=== PATIENT | male | born 1935 | race Caucasian/White ===

== ENCOUNTER → 2017-07-27 | Outpatient (CLI) | payer OTHER ==
[~2017-07-27] MED LIST: ASPI81CH; ATEN25; ATEN25 PO; CEPH500 PO; CIPR500 PO; Celebrex200 MG PO; DAILY MULTIPLE1 EACH; DIPH50 PO; HYDCOR1TC TOP; Norco 5-325 Ta1 EACH PO; OXYACE5T PO; PRED20 PO; PROM25 PO; SULTRIDS PO
== END | disposition home or self-care (01) ==
LOC: LAB 14:06
PROVIDERS: Hospitalist
DX: Z12.5 Encounter for screening for malignant neoplasm of prostate (principal)
CPT/HCPCS: G0103

== ENCOUNTER 2017-11-27 16:14 | Emergency (ER) | payer OTHER ==
[~2017-11-27] VITALS: Ht 188 cm; Wt 83.0 kg
[~2017-11-27 16:14] MED LIST changes: -ATEN25; -Celebrex200 MG PO; -Norco 5-325 Ta1 EACH PO
[2017-11-27] MEDS ORDERED: Celebrex200 MG PO (17:17)
[2017-11-27] MEDS ORDERED: Norco 5-325 Ta1 EACH PO (17:20)
== END 2017-11-27 17:41 | disposition home or self-care (01) ==
LOC: ER 16:14
DX: S20.211A Contusion of right front wall of thorax, initial encounter (principal); Z88.5 Allergy status to narcotic agent; Z79.82 Long term (current) use of aspirin; Z79.899 Other long term (current) drug therapy; W01.0XXA Fall on same level from slipping, tripping and stumbling without subsequent striking against object, initial encounter; Y93.01 Activity, walking, marching and hiking; Y92.89 Other specified places as the place of occurrence of the external cause
CPT/HCPCS: 71101; 96374; 99283; J1885

== ENCOUNTER → 2018-01-03 | Outpatient (CLI) | payer OTHER ==
[~2018-01-03] MED LIST changes: +Celebrex200 MG PO; +Norco 5-325 Ta1 EACH PO
== END | disposition home or self-care (01) ==
LOC: LAB SHORT 15:54 → LAB 15:54
DX: N39.0 Urinary tract infection, site not specified (principal); R31.0 Gross hematuria
CPT/HCPCS: 87086

== ENCOUNTER → 2019-02-15 | Outpatient (CLI) | payer OTHER ==
[~2019-02-15] MED LIST changes: +Aspir 8181 MG PO; +Cipro500 MG PO; +Crutch1 EACH MISC; +Mobic7.5 MG PO; +Percocet 5-3251 EACH PO; +Zofran4 MG PO
[2019-02-15 19:10] LABS: Anion Gap 4 mmol/L (6-16); Blood Urea Nitrogen 15 mg/dL (8-24); Bun/Creatinine Ratio 18.3 (12.0-20.0); CO2, Blood 30 mmol/L (21-32); Calcium, Blood 8.1 mg/dL (8.5-10.1); Chloride, Blood 105 mmol/L (98-108); Creatinine, Blood 0.82 mg/dL (0.60-1.20); Glomerular Filtration Rate >60 (60-); Glucose, Blood 114 mg/dL (70-99); Sodium, Blood 139 mmol/L (136-145)
== END | disposition home or self-care (01) ==
LOC: LAB SHORT 17:58 → LAB 17:58
PROVIDERS: Hospitalist
DX: N40.1 Benign prostatic hyperplasia with lower urinary tract symptoms (principal)
CPT/HCPCS: 80048; 84153; 87086

== ENCOUNTER 2019-04-03 09:55 | Emergency (ER) | payer OTHER ==
[~2019-04-03] VITALS: Ht 188 cm; Wt 79.4 kg
[~2019-04-03 09:55] MED LIST changes: -Aspir 8181 MG PO; -Cipro500 MG PO; -Crutch1 EACH MISC; -Mobic7.5 MG PO; -Percocet 5-3251 EACH PO; -Zofran4 MG PO
[2019-04-03] MEDS ORDERED: Aspir 8181 MG PO (10:18)
[2019-04-03] MEDS ORDERED: Zofran4 MG PO (10:44)
[2019-04-03] MEDS ORDERED: Percocet 5-3251 EACH PO (10:44)
[2019-04-03] MEDS ORDERED: Mobic7.5 MG PO (10:44)
[2019-04-03] MEDS ORDERED: Crutch1 EACH MISC (11:11)
[2019-04-28] MEDS ORDERED: FURO40 PO (03:44)
[2019-04-28] MEDS ORDERED: METO25ER PO (03:44)
== END 2019-04-03 11:48 | disposition home or self-care (01) ==
LOC: ER 09:55
DX: S86.911A Strain of unspecified muscle(s) and tendon(s) at lower leg level, right leg, initial encounter (principal); Z88.5 Allergy status to narcotic agent; Z79.899 Other long term (current) drug therapy; Z79.82 Long term (current) use of aspirin; X58.XXXA Exposure to other specified factors, initial encounter
CPT/HCPCS: 29505; 99283-25

== ENCOUNTER 2019-04-13 15:00 | Emergency (ER) | payer OTHER ==
[~2019-04-13] VITALS: Ht 188 cm; Wt 81.7 kg
[~2019-04-13 15:00] MED LIST changes: +Aspir 8181 MG PO; +Crutch1 EACH MISC; +Mobic7.5 MG PO; +Percocet 5-3251 EACH PO; +Zofran4 MG PO
[2019-04-13 16:59] LABS: Source, Urine Catheter
[2019-04-13 17:10] LABS: Appearance, Urine Cloudy (Clear); Bilirubin, Urine Neg (Neg); Blood, Urine 5+ (Neg); Color, Urine Red (P-Yellow); Glucose Qualitative, Urine Neg (Neg); Ketones, Urine 1+ (Neg); Leukocyte Esterase, Urine 1+ (Neg); Nitrite, Urine Neg (Neg); Protein, Urine 3+ (Neg); Specific Gravity, Urine 1.015 (1.003-1.022); Urobilinogen, Urine NORM (Normal); pH, Urine 6.5 (5.0-8.0)
[2019-04-13 17:12] LABS: Red Blood Cells, Urine TNTC /hpf (0-2)
[2019-04-13 17:13] LABS: Bacteria Mod /hpf; Squamous Epithelial Cells Not Seen /hpf (Few)
[2019-04-13 19:20] LABS: BASOPHILS ABSOLUTE AUTO 0.02 K/mm3 (0.00-0.23); BASOPHILS PERCENT AUTO 0 % (0-2); EOSINOPHILS ABSOLUTE AUTO 0.11 K/mm3 (0.00-0.68); EOSINOPHILS PERCENT AUTO 1 % (0-6); Hemoglobin 16.7 g/dL (13.5-17.5); IMMATURE GRAN ABSOLUTE AUTO 0.01 K/mm3 (0.00-0.10); IMMATURE GRAN PERCENT AUTO 0 % (0-1); LYMPHOCYTES ABSOLUTE AUTO 1.98 K/mm3 (0.84-5.20); LYMPHOCYTES PERCENT AUTO 24 % (21-46); MONOCYTES ABSOLUTE AUTO 0.47 K/mm3 (0.16-1.47); MONOCYTES PERCENT AUTO 6 % (4-13); Mean Corpuscular HGB 31.9 pg (26.0-34.0); Mean Corpuscular HGB Conc 32.7 g/dL (31.5-36.5); Mean Corpuscular Volume 97 fL (80-100); Mean Platelet Volume 10.9 fL (9.1-12.4); NEUTROPHILS ABSOLUTE AUTO 5.67 K/mm3 (1.96-9.15); NEUTROPHILS PERCENT AUTO 69 % (41-73); Platelet Count 146 K/mm3 (150-400); RDW Coefficient Variation 12.8 % (11.7-14.2); RDW Standard Deviation 45.8 fL (35.1-46.3); Red Blood Cell Count 5.24 M/mm3 (4.30-5.90); White Blood Cell Count 8.26 K/mm3 (4.00-11.30)
[2019-04-13 19:42] LABS: Alanine Aminotransfer (ALT/SGP 16 U/L (12-78); Albumin, Blood 3.8 g/dL (3.4-5.0); Albumin/Globulin Ratio 1.1 (0.8-1.8); Alk Phos 63 U/L (50-136); Anion Gap 3 mmol/L (6-16); Aspartate Aminotrans (AST/SGOT 11 U/L (12-37); Bilirubin, Total 0.8 mg/dL (0.1-1.0); Blood Urea Nitrogen 15 mg/dL (8-24); Bun/Creatinine Ratio 19.9 (12.0-20.0); CO2, Blood 30 mmol/L (21-32); Calcium, Blood 8.9 mg/dL (8.5-10.1); Chloride, Blood 106 mmol/L (98-108); Creatinine, Blood 0.75 mg/dL (0.60-1.20); Globulin, Blood 3.5 g/dL (2.2-4.0); Glomerular Filtration Rate >60 (60-); Glucose, Blood 95 mg/dL (70-99); Potassium, Blood 3.8 mmol/L (3.5-5.5); Sodium, Blood 139 mmol/L (136-145); Total Protein, Blood 7.3 g/dL (6.4-8.2)
[2019-04-28] MEDS ORDERED: FURO40 PO (03:44)
[2019-04-28] MEDS ORDERED: METO25ER PO (03:44)
== END 2019-04-13 20:05 | disposition home or self-care (01) ==
LOC: ER 15:00
PROVIDERS: Emergency Medicine; Physician Assistant
DX: R33.9 Retention of urine, unspecified (principal); Z88.5 Allergy status to narcotic agent; Z79.899 Other long term (current) drug therapy; Z79.82 Long term (current) use of aspirin
CPT/HCPCS: 36415; 51702; 51798; 74176; 80053; 81001; 85025; 87086; 99284-25

== ENCOUNTER 2019-04-15 14:23 | Emergency (ER) | payer OTHER ==
[~2019-04-15] VITALS: Ht 188 cm; Wt 81.7 kg
[2019-04-28] MEDS ORDERED: FURO40 PO (03:44)
[2019-04-28] MEDS ORDERED: METO25ER PO (03:44)
== END 2019-04-15 18:01 | disposition short-term general hospital (02) ==
LOC: ER 14:23
DX: N47.2 Paraphimosis (principal); Z88.5 Allergy status to narcotic agent; Z79.899 Other long term (current) drug therapy; Z79.82 Long term (current) use of aspirin; Z79.891 Long term (current) use of opiate analgesic
CPT/HCPCS: 54450; 96374-59; 96375-59; 99284-25; J1170; J2405

== ENCOUNTER 2019-04-19 08:57 | Emergency (ER) | payer OTHER ==
[~2019-04-19] VITALS: Ht 188 cm; Wt 81.7 kg
[2019-04-19 09:40] LABS: Source, Urine Clean Catch
[2019-04-19 10:01] LABS: Appearance, Urine Hazy (Clear); Bilirubin, Urine Neg (Neg); Blood, Urine 5+ (Neg); Color, Urine Yellow (P-Yellow); Glucose Qualitative, Urine Neg (Neg); Ketones, Urine Neg (Neg); Leukocyte Esterase, Urine 3+ (Neg); Nitrite, Urine Pos (Neg); Protein, Urine 3+ (Neg); Specific Gravity, Urine 1.005 (1.003-1.022); Urobilinogen, Urine NORM (Normal)
[2019-04-19 10:02] LABS: Bacteria Many /hpf; Red Blood Cells, Urine 50-100 /hpf (0-2); Squamous Epithelial Cells Not Seen /hpf (Few); White Blood Cells, Urine 50-100 /hpf (0-5)
[2019-04-19] MEDS ORDERED: Cipro500 MG PO (10:26)
[2019-04-28] MEDS ORDERED: METO25ER PO (03:44)
[2019-04-28] MEDS ORDERED: FURO40 PO (03:44)
== END 2019-04-19 11:26 | disposition home or self-care (01) ==
LOC: ER 08:57
PROVIDERS: Physician Assistant
DX: N39.0 Urinary tract infection, site not specified (principal); Z88.5 Allergy status to narcotic agent; Z79.899 Other long term (current) drug therapy; Z79.82 Long term (current) use of aspirin
CPT/HCPCS: 51798; 81001; 87077; 87086; 87186; 99283-25

== ENCOUNTER → 2019-04-27 | Outpatient (CLI) | payer OTHER ==
[~2019-04-27] MED LIST changes: +Cipro500 MG PO; +FURO40 PO; +METO25ER PO
== END | disposition home or self-care (01) ==
LOC: LAB 13:30 → LAB SHORT 13:30
DX: N39.0 Urinary tract infection, site not specified (principal)
CPT/HCPCS: 87077; 87086; 87186

== ENCOUNTER 2019-06-07 18:51 | Observation (INO) | payer OTHER ==
[~2019-06-07] VITALS: Ht 188 cm; Wt 79.9 kg
[~2019-06-07 18:51] MED LIST changes: -METO25ER PO; +METO50ER PO
[2019-06-07 19:46] LABS: Source, Urine Clean Catch
[2019-06-07 19:52] LABS: BASOPHILS ABSOLUTE AUTO 0.02 K/mm3 (0.00-0.23); BASOPHILS PERCENT AUTO 0 % (0-2); EOSINOPHILS ABSOLUTE AUTO 0.02 K/mm3 (0.00-0.68); EOSINOPHILS PERCENT AUTO 0 % (0-6); Hemoglobin 15.7 g/dL (13.5-17.5); IMMATURE GRAN ABSOLUTE AUTO 0.03 K/mm3 (0.00-0.10); IMMATURE GRAN PERCENT AUTO 0 % (0-1); LYMPHOCYTES ABSOLUTE AUTO 1.34 K/mm3 (0.84-5.20); LYMPHOCYTES PERCENT AUTO 16 % (21-46); MONOCYTES PERCENT AUTO 4 % (4-13); Mean Corpuscular HGB 31.7 pg (26.0-34.0); Mean Corpuscular HGB Conc 33.4 g/dL (31.5-36.5); Mean Corpuscular Volume 95 fL (80-100); Mean Platelet Volume 10.4 fL (9.1-12.4); NEUTROPHILS ABSOLUTE AUTO 6.96 K/mm3 (1.96-9.15); NEUTROPHILS PERCENT AUTO 80 % (41-73); Platelet Count 130 K/mm3 (150-400); RDW Coefficient Variation 13.4 % (11.7-14.2); RDW Standard Deviation 47.1 fL (35.1-46.3); Red Blood Cell Count 4.96 M/mm3 (4.30-5.90); White Blood Cell Count 8.67 K/mm3 (4.00-11.30)
[2019-06-07 19:55] LABS: Bilirubin, Urine Neg (Neg); Blood, Urine 3+ (Neg); Glucose Qualitative, Urine Neg (Neg); Ketones, Urine 1+ (Neg); Leukocyte Esterase, Urine 2+ (Neg); Nitrite, Urine Pos (Neg); Protein, Urine 2+ (Neg); Specific Gravity, Urine 1.015 (1.003-1.022); Urobilinogen, Urine NORM (Normal)
[2019-06-07 20:01] LABS: Appearance, Urine Hazy (Clear); Color, Urine Yellow (P-Yellow)
[2019-06-07 20:04] LABS: Bacteria Mod /hpf; Squamous Epithelial Cells Few /hpf (Few)
[2019-06-07 20:15] LABS: Alanine Aminotransfer (ALT/SGP 20 U/L (12-78); Albumin, Blood 3.5 g/dL (3.4-5.0); Albumin/Globulin Ratio 0.9 (0.8-1.8); Alk Phos 55 U/L (50-136); Anion Gap 5 mmol/L (6-16); Aspartate Aminotrans (AST/SGOT 12 U/L (12-37); Bilirubin, Total 1.1 mg/dL (0.1-1.0); Blood Urea Nitrogen 12 mg/dL (8-24); Bun/Creatinine Ratio 18.2 (12.0-20.0); CO2, Blood 27 mmol/L (21-32); Calcium, Blood 8.8 mg/dL (8.5-10.1); Chloride, Blood 103 mmol/L (98-108); Creatinine, Blood 0.66 mg/dL (0.60-1.20); Globulin, Blood 3.7 g/dL (2.2-4.0); Glomerular Filtration Rate >60 (60-); Glucose, Blood 168 mg/dL (70-99); Potassium, Blood 3.7 mmol/L (3.5-5.5); Sodium, Blood 135 mmol/L (136-145); Total Protein, Blood 7.2 g/dL (6.4-8.2)
[2019-06-07 21:54] LABS: International Normalized Ratio 1.07; Prothrombin Time Results 11.3 Sec (9.7-11.5)
--- NOTE | 2019-06-08 04:30 | NUR ---
SHIFT SUMMARY RECIVED REPORT FROM ADDIS BENTLEY, ED. ARRIVED TO THE MEDICAL FLOOR VIA STRETCHER @ 0057. ABLE TO TRANSFER WITH MINIMAL ASSISTANCE; HOWEVER, DID APPEAR DIFFICULT R/T WEAKNESS OVER THE PAST FEW DAYS. A/OX4, ABLE TO MAKE NEEDS KNOWN. COOPERATIVE WITH CARE. NO C/O PAIN/DISCOMFORT. IV PATENT AND RUNNING NS X1 BAG @ 100 ML/HR. ADMISSION PROCESS COMPLETE. VSS/AFEBRILE. APPEARS TO BE RESTING COMFORTABLY. NO ACUTE CHANGES NOTED. BED IN LOWEST POSITION. CALL LIGHT WITHIN REACH. WCTM. REPORT TO ZEESHAN BENTLEY.
--- NOTE | 2019-06-08 04:52 | NUR ---
LATE ENTRY 0100 PATIENT STATED THAT HE WOULD RATHER NOT CHANGE THE CURRENT CATHETER IT WAS VERY DIFFICULT FOR HIS UROLOGIST (DR. NICOLE IN [place]) TO PLACE ON 05/29/19. PER PATIENT WILL HAVE SURGERY ON PROSTATE 06/13/19.
[2019-06-08 05:34] LABS: Anion Gap 6 mmol/L (6-16); Blood Urea Nitrogen 13 mg/dL (8-24); Bun/Creatinine Ratio 18.5 (12.0-20.0); CO2, Blood 27 mmol/L (21-32); Calcium, Blood 8.4 mg/dL (8.5-10.1); Chloride, Blood 107 mmol/L (98-108); Glomerular Filtration Rate >60 (60-); Glucose, Blood 101 mg/dL (70-99); Potassium, Blood 3.3 mmol/L (3.5-5.5); Sodium, Blood 140 mmol/L (136-145)
--- NOTE | 2019-06-08 07:04 | NUR ---
PHYSICIAN COMMUNICATION CALLED THE SENIOR SOLUTIONS ENGINEER PHYSICIAN AT 0 TO LET HIM KNOW THAT THE PATIENT NEEDED AN ORDER FOR A LUNA CATHETER HE CAME TO THE UNIT WITH ONE IN PLACE. DR GAVIRIA APPROVED THE ORDER FOR THE CATHETER.
[2019-06-08] MEDS ORDERED: ASPI81CH PO (16:48)
--- NOTE | 2019-06-08 17:22 | NUR ---
DISCHARGE SUMMARY LEILA LEFT BY WC WITH HIS DAUGHTER TO GO HOME. PT DOING MUCH BETTER ON HIS FEET, SBA W VERBAL CUES ONLY, WALKED AROUND UNIT WITH WALKER AND GAIT BELT FOR SAFETY. LUNA INTACT AND DRAINING. MRI DONE.
== END 2019-06-08 17:20 | disposition home or self-care (01) ==
LOC: ER 18:51 → MEDS 18:52 → ER 06-08 00:45 → MEDS 06-08 00:57
PROVIDERS: Emergency Medicine; Physician Assistant; ADMIT Hospitalist
DX: R26.0 Ataxic gait (principal); I10 Essential (primary) hypertension; G60.0 Hereditary motor and sensory neuropathy; I48.91 Unspecified atrial fibrillation; N40.1 Benign prostatic hyperplasia with lower urinary tract symptoms; R33.8 Other retention of urine; Z79.899 Other long term (current) drug therapy
CPT/HCPCS: 36415; 70450; 70551; 80048; 80053; 81001; 85025; 85610; 85730; 87086; 93005; 93010; 96361; 96374; 96375; 97116; 97162; 97530; 99285-25; G0378; J2405; J2765; J7030

== ENCOUNTER → 2019-10-23 | Outpatient (CLI) | payer OTHER ==
[~2019-10-23] MED LIST changes: +ASPI81CH PO
== END | disposition home or self-care (01) ==
LOC: PLD 13:05 → LAB SHORT 13:05
DX: D22.39 Melanocytic nevi of other parts of face (principal); L72.8 Other follicular cysts of the skin and subcutaneous tissue
CPT/HCPCS: 88305

== ENCOUNTER 2020-02-20 14:27 | Observation (INO) | payer OTHER ==
[~2020-02-20] VITALS: Ht 188 cm; Wt 81.7 kg
[~2020-02-20 14:27] MED LIST changes: -ASPI81CH PO; +Aspirin EC81 MG PO
[2020-02-20 15:37] LABS: BASOPHILS ABSOLUTE AUTO 0.02 K/mm3 (0.00-0.23); BASOPHILS PERCENT AUTO 0 % (0-2); EOSINOPHILS ABSOLUTE AUTO 0.14 K/mm3 (0.00-0.68); EOSINOPHILS PERCENT AUTO 2 % (0-6); Hematocrit 49.9 % (37.0-53.0); Hemoglobin 15.5 g/dL (13.5-17.5); IMMATURE GRAN ABSOLUTE AUTO 0.02 K/mm3 (0.00-0.10); IMMATURE GRAN PERCENT AUTO 0 % (0-1); LYMPHOCYTES ABSOLUTE AUTO 1.77 K/mm3 (0.84-5.20); LYMPHOCYTES PERCENT AUTO 25 % (21-46); MONOCYTES ABSOLUTE AUTO 0.52 K/mm3 (0.16-1.47); MONOCYTES PERCENT AUTO 7 % (4-13); Mean Corpuscular HGB Conc 31.1 g/dL (31.5-36.5); Mean Corpuscular Volume 93 fL (80-100); Mean Platelet Volume 11.4 fL (9.1-12.4); NEUTROPHILS ABSOLUTE AUTO 4.65 K/mm3 (1.96-9.15); NEUTROPHILS PERCENT AUTO 65 % (41-73); Platelet Count 141 K/mm3 (150-400); RDW Coefficient Variation 14.9 % (11.7-14.2); RDW Standard Deviation 51.3 fL (35.1-46.3); Red Blood Cell Count 5.35 M/mm3 (4.30-5.90); White Blood Cell Count 7.12 K/mm3 (4.00-11.30)
[2020-02-20 15:59] LABS: Source, Urine Clean Catch
[2020-02-20 16:01] LABS: Alanine Aminotransfer (ALT/SGP 24 U/L (12-78); Albumin, Blood 3.6 g/dL (3.4-5.0); Albumin/Globulin Ratio 0.9 (0.8-1.8); Alk Phos 59 U/L (50-136); Anion Gap 0 mmol/L (6-16); Aspartate Aminotrans (AST/SGOT 35 U/L (12-37); Bilirubin, Total 1.5 mg/dL (0.1-1.0); Blood Urea Nitrogen 13 mg/dL (8-24); Bun/Creatinine Ratio 17.3 (12.0-20.0); CO2, Blood 30 mmol/L (21-32); Calcium, Blood 8.9 mg/dL (8.5-10.1); Chloride, Blood 109 mmol/L (98-108); Creatinine, Blood 0.75 mg/dL (0.60-1.20); Globulin, Blood 4.1 g/dL (2.2-4.0); Glomerular Filtration Rate >60 (60-); Glucose, Blood 95 mg/dL (70-99); Potassium, Blood 5.3 mmol/L (3.5-5.5); Sodium, Blood 139 mmol/L (136-145); Total Protein, Blood 7.7 g/dL (6.4-8.2); Troponin I <0.015 ng/mL (0.000-0.040)
[2020-02-20 16:02] LABS: Bilirubin, Urine Neg (Neg); Blood, Urine Neg (Neg); Glucose Qualitative, Urine Neg (Neg); Ketones, Urine Neg (Neg); Leukocyte Esterase, Urine Neg (Neg); Nitrite, Urine Neg (Neg); Protein, Urine Neg (Neg); Urobilinogen, Urine NORM (Normal)
[2020-02-20 16:08] LABS: Appearance, Urine Clear (Clear); Color, Urine Yellow (P-Yellow)
--- NOTE | 2020-02-21 06:29 | NUR ---
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 THE PATIENT IS UNDER OBSERBATION STATUS. PT'S HR REMAINED STABLE BETWEEN 50-80 AFIB WITH A STABLE BP. PT STOOD UP WITH ASSISTANCE AT ONE POINT BECUASE HE REPORTED A SEVERE LEG CRAMP HE NEEDED TO STRETCH OUT, BUT DID NOT REMAIN STANDING MORE THAN 3 MINUTES BECAUSWE HE FELT DIZZY, ALTHOUGH BP AND HR REMAINED UNCHANGED. NO TOEHR CLINICAL CONCERNS AT THIS TIME, PT IS STABLE.
[2020-02-21 08:35] LABS: Anion Gap 4 mmol/L (6-16); Blood Urea Nitrogen 15 mg/dL (8-24); Bun/Creatinine Ratio 22.7 (12.0-20.0); CO2, Blood 27 mmol/L (21-32); Calcium, Blood 8.4 mg/dL (8.5-10.1); Chloride, Blood 107 mmol/L (98-108); Creatinine, Blood 0.66 mg/dL (0.60-1.20); Glomerular Filtration Rate >60 (60-); Glucose, Blood 91 mg/dL (70-99); Sodium, Blood 138 mmol/L (136-145)
--- NOTE | 2020-02-21 15:37 | NUR ---
TRANSFER OF CARE REPORT GIVEN TO MEDICAL FLOOR RN. PT TRANSFERRED TO ROOM 341 VIA WHEELCHAIR BY ADDIS REGALADO. BELONGINGS WERE GATHERED AND TAKEN WITH PT. PRIOR TO TRANSFER HEAD ABRASION WAS CLEANSE AND LEFT MICHAEL, LEFT ELBOW SKIN TEAR OF CLEANSED AND FOAM DRESSING PLACED AND LEFT HAND INDEX FINGERNAIL BED WAS CLEANSED AND DRESSING APPLIED FOR PROTECTION. TODAY PT HAS APPEARED MORE FORGETFUL AND WOULD NEED REMINDING OF PREVIOUS CONVERSATIONS WE HAD EARLIER TODAY.
--- NOTE | 2020-02-21 16:29 | NUR ---
PT TRANSFERRED TO ROOM 341 AT 1530 FROM ICU 15- ORIENTED TO ROOM SET UP AND CALL LIGHT AND SAFETY. INSTRUCTED TO USE CALL LIGHT BEFORE GETTING UP AND SET BED ALARM. NEURO INTACE. PT HAS EDEMA TO BLE AND STATES NEUROPATHY. HAS STERI STRIPS OVER THE 2 PUNCTURE SITES ON LE FROM VENOUS ABLATION 02/19, NO DRAINAGE. TOLERATING FLUIDS. A/O X4 AND ABLE TO MAKE NEEDS KNWON. AWAITING TELE BOX. VSS. HR PALP 66.
--- NOTE | 2020-02-21 19:20 | NUR ---
ASSUMED CARE. SPEND AWHILE WITH ABLE TALKING ABOUT HIS PROBLEMS AND HELPING HIM UNDERSTAND THEM. HE DID REPORT PAIN IN HIS BOTTOM BEFORE COMING UP TO THE FLOOR, FEELING LIKE BLISTERS UNDER THE SKIN IN THE CREASE OF HIS BUTTOCKS. WAS GOING TO ASSESS IT BUT HE WOULD NOT STOP TALKING TO TURN OVER. HE REPORTED HAVING DECREASE SENSATION FROM HIS HIPS DOWN WITH NUMBNESS IN HIS FEET. THIS IS CAUSED BY HIS CMT. GOT INTO A LONG DISCUSSION WITH HIM REGARDING THIS DISEASE I WAS VERY FAMILIAR WITH IT. HELPED EXPLAIN SYMTPOMS, AND WAHT THE DISEASE WAS. HE HAD DRESSING ON HIS LEFT 3RD FINGER, LEFT ELBOW, RIGHT ELBOW, STERI STRIPS TO THE RIGHT LEG X2, AND A ABRASION ON HIS FORHEAD. DRESSING WERE CDI, AND ABRASION WAS SCABBED OVER. LUNG SOUNDS CLEAR THROUGHOUT, IRREGULAR HR. HAD TO PULL MYSELF AWAY HE WOULD CONTINUE TO TALK ALL NIGHT. HE HAS ALOT OF DISCUSSION REGARDING HIS DISEASE WHICH I REFERRED HIM TO CMT ASSOCIATION. ACLL LIGHT IN REACH. WILL CONTIUE TO MONITOR.
--- NOTE | 2020-02-22 05:24 | NUR ---
SHIFT SUMMARY: AOX3, COOPERATIVE. HAD ALOT OF QUESTIONS REGARDING CARE AND CMT DISEASE PROCESS. EDUCATION GIVEN. DRESSINGS TO ELBOWS AND LEFT FINGER STILL CDI. NO FALLS THIS SHIFT. USED CALL LIGHT APPROPRIATLY. VS SHOWED ELEVATION OF BP AT 163/86, THEN BACK TO NORMAL THIS AM. NO CARDIAC SYMTPOMS NOTED THIS SHIFT. TELE REMAINED AFIB WITH NO DROPS TO BRADICARDIA. SLEPT WELL THROUGHOUT THE NIGHT. WILL REPORT TO DAY SHIFT.
--- NOTE | 2020-02-22 15:29 | NUR ---
PT DISCHARGED THE PT'S DC WAS HELD UP TODAY APPARENTLY TO A MIS UNDERSTANDING THAT THE PT WOULD NEED TO BE ASSISTED AT ALL TIMES WHILE AMBULATING, INFACT ACCORDING TO THE PHYSICAL THERAPIST THE PT WAS AT HIS BASE LINE AND ONLY NEEDED MINIMAL ASSIST, THE FAMILY WAS WILLING TO TAKE THE PT HOME WITH THAT UNDERSTANDING, THE PT VERBALIZED UNDERSTANDING OF THE DC INSTRUCTIONS, A HEART MONITOR WAS PLACED ON THE PT PRIOR TO DC, CARDIOLOGY FOLLOW UP APPOINTMENT WAS MADE FOR THE PT, THE PT WAS TRANSFERED VIA WHEELCHAIR ACCOMPANIED BY THE MANAGER MEDICAL AND HIS FRIEND
== END 2020-02-22 15:05 | disposition home health service (06) ==
LOC: ER 14:27 → ICUW 14:28 → MEDS 14:28 → ICUW 19:46 → MEDS 02-21 15:37
PROVIDERS: Physician Assistant; ADMIT Internal Medicine
DX: S09.90XA Unspecified injury of head, initial encounter (principal); I49.5 Sick sinus syndrome; I16.0 Hypertensive urgency; I48.0 Paroxysmal atrial fibrillation; I10 Essential (primary) hypertension; W18.00XA Striking against unspecified object with subsequent fall, initial encounter; Y92.009 Unspecified place in unspecified non-institutional (private) residence as the place of occurrence of the external cause; Z79.899 Other long term (current) drug therapy; Z98.890 Other specified postprocedural states; Z79.82 Long term (current) use of aspirin; E78.5 Hyperlipidemia, unspecified; R00.1 Bradycardia, unspecified
CPT/HCPCS: 36415; 70450; 72125; 80048; 80053; 81003; 84484; 85025; 93005; 93010; 93270; 93271; 96372; 96374; 97110; 97116; 97162; 97530; 99285-25; A9270; G0378; J0360; J1650

== ENCOUNTER → 2020-06-23 | Outpatient (CLI) | payer OTHER ==
[~2020-06-23] MED LIST changes: +BUMETANIDE2 MG PO; +LOSA50 PO; +METOPROLOL SUCC25 MG PO
== END | disposition home or self-care (01) ==
LOC: LAB SHORT 09:41
DX: Z01.818 Encounter for other preprocedural examination (principal); M17.11 Unilateral primary osteoarthritis, right knee

== ENCOUNTER 2020-07-08 08:37 | Day surgery (SDC) | payer OTHER, SELFPAY ==
[~2020-07-08] VITALS: Ht 185.4 cm; Wt 91.6 kg
[~2020-07-08 08:37] MED LIST changes: -BUMETANIDE2 MG PO; -LOSA50 PO; -METOPROLOL SUCC25 MG PO
--- NOTE | 2020-07-08 09:44 | NUR ---
Ambulatory in Day Surgery. Surgical site prepped with 2% Chlorhexidine cloth wipe. Barry Paws warming gown applied. History, Chart, Medications and Allergies reviewed before start of procedure.Lungs clear T/O to Auscultation. Patient confirms NPO status and agrees with scheduled surgery. Pre-Op teaching done. Pt verbalizes understanding. Patient States Post-Procedure ride home has been arranged. Patient reports completing Chlorhexadine shower X2 prior to admission to hospital.
--- NOTE | 2020-07-08 14:11 | NUR ---
DR HARPER HERE TO SEE PT. PT A/O. SLOW TO RESPOND AT TIMES.
--- NOTE | 2020-07-08 15:29 | NUR ---
THERAPY IN ROOM. FAMILY PRESENT.
--- NOTE | 2020-07-08 16:51 | NUR ---
OTHER RN Esau GIVEN REPORT SHE IS TAKING OVER CARE.
--- NOTE | 2020-07-08 20:38 | NUR ---
WHEN DISCUSSING PLAN OF CARE WITH PT, PT UNINTERESTED AND UNRECEPTIVE. PT EDUCATED ON PAIN MANAGEMENT, POSTOP MEDICATIONS AND PHYSICAL THERAPY IN THE MORNING. PT DECLINING COLACE, TORADOL AND TYLENOL WELL PRN MEDS. PT UNDERSTANDS RISK OF POSTOP INFECTION AND IS RECEPTIVE TO SCHEDULED ABX. PT REPORTS WANTING TO SLEEP AND TO NOT BE WOKEN THROUGHOUT NIGHT. REFUSING MIDNIGHT VITAL SIGNS. PT AWARE OF STAFF ROUNDING Q2 HOURS.
--- NOTE | 2020-07-09 04:26 | NUR ---
SHIFT SUMMARY: PT POD#1 FOR RT TKA. PT A&O X4. IRRITABLE IN BEGINNING OF SHIFT, REQUESTING TO SLEEP AND NOT BE WOKEN FOR MEDICATIONS AND VITAL SIGNS. AT APPROX 2230 PT WOKE UP WELL RESTED AND AGREED TO AMBULATE THE HALLWAY. PT AMBULATING WITH 1 SBA AND FWW+GB. TOLERATING ACTIVITY WELL. REPORTS PAIN IS TOLERABLE. 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 RLE SWOLLEN. CAP REFILL WNL. RANDY WRAP C/D/I WITH POLAR PACK IN PLACE. DENEEN PO AND VOIDING WELL. PLAN FOR PHYSICAL THERAPY TODAY.
[2020-07-09 06:11] LABS: BASOPHILS ABSOLUTE AUTO 0.01 K/mm3 (0.00-0.23); BASOPHILS PERCENT AUTO 0 % (0-2); EOSINOPHILS PERCENT AUTO 0 % (0-6); Hematocrit 40.7 % (37.0-53.0); Hemoglobin 13.4 g/dL (13.5-17.5); IMMATURE GRAN ABSOLUTE AUTO 0.03 K/mm3 (0.00-0.10); IMMATURE GRAN PERCENT AUTO 0 % (0-1); LYMPHOCYTES ABSOLUTE AUTO 1.05 K/mm3 (0.84-5.20); LYMPHOCYTES PERCENT AUTO 10 % (21-46); MONOCYTES ABSOLUTE AUTO 0.39 K/mm3 (0.16-1.47); MONOCYTES PERCENT AUTO 4 % (4-13); Mean Corpuscular HGB 30.7 pg (26.0-34.0); Mean Corpuscular HGB Conc 32.9 g/dL (31.5-36.5); Mean Corpuscular Volume 93 fL (80-100); NEUTROPHILS ABSOLUTE AUTO 9.24 K/mm3 (1.96-9.15); NEUTROPHILS PERCENT AUTO 86 % (41-73); Platelet Count 142 K/mm3 (150-400); RDW Coefficient Variation 13.7 % (11.7-14.2); RDW Standard Deviation 47.5 fL (35.1-46.3); Red Blood Cell Count 4.36 M/mm3 (4.30-5.90); White Blood Cell Count 10.72 K/mm3 (4.00-11.30)
[2020-07-09 06:24] LABS: Anion Gap 6 mmol/L (6-16); Blood Urea Nitrogen 19 mg/dL (8-24); Bun/Creatinine Ratio 25.2 (12.0-20.0); CO2, Blood 25 mmol/L (21-32); Calcium, Blood 8.3 mg/dL (8.5-10.1); Chloride, Blood 109 mmol/L (98-108); Creatinine, Blood 0.75 mg/dL (0.60-1.20); Glomerular Filtration Rate >60 (60-); Glucose, Blood 151 mg/dL (70-99); Potassium, Blood 4.3 mmol/L (3.5-5.5); Sodium, Blood 140 mmol/L (136-145)
--- NOTE | 2020-07-09 09:10 | NUR ---
DR HARPER BEEN HERE AND SEEN PT.
--- NOTE | 2020-07-09 09:10 | NUR ---
RANDY WRAP AND DOMINIQUE HOSE TO RLE PER DR HARPER.
[2020-07-09] MEDS ORDERED: Percocet 5-3251 EACH PO (12:22)
--- NOTE | 2020-07-09 13:57 | NUR ---
DISCHARGE: PT EATING AND DRINKING, VOIDING, PASSING GAS. PT PAIN CONTROLLED ON PO PAIN MEDICATION. PT/FAMILY REPORTS UNDERSTANDING OF DISCHARGE INSTRUCTIONS. PT CLEARED THERAPY TO GO HOME. PT SENT WITH DRESSING SUPPLIES, SCRIPT AND PAPERWORK. PT REPORTS HAVING WALKER AT HOME. PT SENT WITH ICE MACHINE WELL.
--- NOTE | 2020-07-09 13:57 | NUR ---
ENGAGEMENT MGR BEEN HERE TO DISCUSS H.H. EARLIER TODAY.
== END 2020-07-09 13:05 | disposition home or self-care (01) ==
LOC: ORSCMMR 08:37 → ORD 09:45 → SURS 13:30 → ORSCMMR 07-09 13:05
PROVIDERS: Orthopaedic Surgery
PROC: 0SRC0JA Replacement of Right Knee Joint with Synthetic Substitute, Uncemented, Open Approach (ICD-10-PCS; principal; 2020-07-08 09:45)
DX: M17.11 Unilateral primary osteoarthritis, right knee (principal); I48.91 Unspecified atrial fibrillation; I10 Essential (primary) hypertension; Z79.899 Other long term (current) drug therapy
CPT/HCPCS: 36415; 73560-RT; 80048; 85025; 88300; 97110; 97116; 97162; A9270; C1776; J0171; J0690; J0735; J1100; J1885; J2250; J2405; J2704; J2795; J3010; J7120

== ENCOUNTER 2020-07-16 16:56 | Inpatient (IN) | payer OTHER, SELFPAY ==
[~2020-07-16] VITALS: Ht 185.4 cm; Wt 87.5 kg
[2020-07-16 17:38] LABS: BASOPHILS ABSOLUTE AUTO 0.04 K/mm3 (0.00-0.23); BASOPHILS PERCENT AUTO 0 % (0-2); EOSINOPHILS ABSOLUTE AUTO 0.14 K/mm3 (0.00-0.68); EOSINOPHILS PERCENT AUTO 1 % (0-6); Hematocrit 40.1 % (37.0-53.0); Hemoglobin 12.7 g/dL (13.5-17.5); IMMATURE GRAN ABSOLUTE AUTO 0.03 K/mm3 (0.00-0.10); IMMATURE GRAN PERCENT AUTO 0 % (0-1); LYMPHOCYTES ABSOLUTE AUTO 1.53 K/mm3 (0.84-5.20); LYMPHOCYTES PERCENT AUTO 15 % (21-46); MONOCYTES ABSOLUTE AUTO 0.65 K/mm3 (0.16-1.47); MONOCYTES PERCENT AUTO 6 % (4-13); Mean Corpuscular HGB 30.4 pg (26.0-34.0); Mean Corpuscular HGB Conc 31.7 g/dL (31.5-36.5); Mean Corpuscular Volume 96 fL (80-100); Mean Platelet Volume 9.7 fL (9.1-12.4); NEUTROPHILS ABSOLUTE AUTO 8.12 K/mm3 (1.96-9.15); NEUTROPHILS PERCENT AUTO 77 % (41-73); Platelet Count 226 K/mm3 (150-400); RDW Standard Deviation 49.1 fL (35.1-46.3); Red Blood Cell Count 4.18 M/mm3 (4.30-5.90); White Blood Cell Count 10.51 K/mm3 (4.00-11.30)
[2020-07-16 17:57] LABS: Alanine Aminotransfer (ALT/SGP 25 U/L (12-78); Albumin, Blood 2.9 g/dL (3.4-5.0); Albumin/Globulin Ratio 0.7 (0.8-1.8); Alk Phos 61 U/L (50-136); Anion Gap 9 mmol/L (6-16); Aspartate Aminotrans (AST/SGOT 17 U/L (12-37); Bilirubin, Total 1.7 mg/dL (0.1-1.0); Blood Urea Nitrogen 18 mg/dL (8-24); Bun/Creatinine Ratio 24.8 (12.0-20.0); CO2, Blood 23 mmol/L (21-32); Calcium, Blood 8.4 mg/dL (8.5-10.1); Chloride, Blood 103 mmol/L (98-108); Creatinine, Blood 0.73 mg/dL (0.60-1.20); Globulin, Blood 4.4 g/dL (2.2-4.0); Glomerular Filtration Rate >60 (60-); Glucose, Blood 112 mg/dL (70-99); Sodium, Blood 135 mmol/L (136-145); Total Protein, Blood 7.3 g/dL (6.4-8.2)
[2020-07-16] MEDS ORDERED: BUMETANIDE2 MG PO (20:41)
[2020-07-16] MEDS ORDERED: METOPROLOL SUCC25 MG PO (20:42)
[2020-07-16 21:43] LABS: Source, Urine Clean Catch
[2020-07-16 21:46] LABS: Bilirubin, Urine Neg (Neg); Blood, Urine Neg (Neg); Glucose Qualitative, Urine Neg (Neg); Ketones, Urine Neg (Neg); Leukocyte Esterase, Urine Neg (Neg); Nitrite, Urine Neg (Neg); Protein, Urine 1+ (Neg); Specific Gravity, Urine 1.015 (1.003-1.022); Urobilinogen, Urine NORM (Normal)
[2020-07-16 21:48] LABS: Appearance, Urine Clear (Clear); Color, Urine Amber (P-Yellow)
--- NOTE | 2020-07-17 00:22 | NUR ---
PATIENT IS A NEW ADMIT FROM THE ED. AXO X 3 AND FOUR PERSON TRANSFER FROM [facility] TO BED. REPORTS PAIN IN RIGHT LOWER EXTREMITY CELLULITIS. 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 COMPRESSION STOCKING NOTED ROLLED DOWN TO ANKLE AND CAUSING INCREASED SWELLING AND PAIN. PATIENT REPORTS NO PAIN AFTER STOCKING REMOVED WITHIN TWENTY MINUTES. BEDREST AND ON ROOM AIR. ONE FAMILY MEMBER PRESENT FOR ADMIT AND LEFT AFTER PATIENT SETTLED IN. ORIENTED TO ROOM AND CALL LIGHT SYSTEM. WATCHED TV AND REPORTED READY FOR SLEEP. CALL LIGHT IN REACH.
--- NOTE | 2020-07-17 02:08 | NUR ---
HOSPITALIST DR RASHID ORDERED NORCO 5/325 MG 1-2 TABS Q4 FOR PAIN MANAGEMENT. IV ABX INFUSED. PATIENT SLEEPING AT THIS TIME. CALL LIGHT IN REACH.
--- NOTE | 2020-07-17 04:15 | NUR ---
SHIFT SUMMARY PATIENT HAD NO ACUTE CHANGES OBSERVED. AXOX 3 AND BEDREST USING URINAL AT BEDSIDE. REPORTS REDUCED RIGHT LOWER EXTREMITY PAIN. FEET ELEVATED ON PILLOWS THIS SHIFT. HOSPITALIST DR RASHID ORDERED NORCO 5/325 MG 1-2 TABS FOR PAIN MANAGEMENT. DENIED PAIN AT THIS TIME. DENIES SOB AND N/V.VSS/AFEBRILE. PIV REMAINS INTACT. IV ABX INFUSED. TAKES MEDICATION WHOLE WITH WATER. COOPERATIVE WITH CARE. CALL LIGHT IN REACH. BED IN LOWEST POSITION. WILL CONTINUE TO MONITOR UNTIL DAY SHIFT NURSE ASSUMES CARE.
--- NOTE | 2020-07-17 16:20 | NUR ---
PT WORKED WITH PT AND OT. WAS ABLE TO AMBULATE AROUND THE ROOM AND HAS REQUESTED TO BE WALKED DAILY. HE IS ALERT AND ORIENTED AND ABLE TO EXPRESS ANY NEEDS. PT RIGHT LEG CONTINUES TO BE RED AND SWOLLEN AND PAINFUL TO PATIENT. CALL LIGHT WITHIN REACH. WILL COMNTINUE TO MONTSERRAT.
--- NOTE | 2020-07-18 03:59 | NUR ---
SHIFT SUMMARY PATIENT HAD NO ACUTE CHANGES OBSERVED. AXOX 3 AND ONE ASSIST TO BSC. USES URINAL AT BEDSIDE. RIGHT LEG REMAINS SWOLLEN AND RED. SCHEDULE TORADOL GIVEN PER EMAR. PIV REMAINS INTACT. IV ABX INFUSED. TAKES MEDICATION WHOLE WITH WATER. DENIES PAIN, SOB, AND N/V. VSS/AFEBRILE. COOPERATIVE WITH CARE. CALL LIGHT IN REACH. BED IN LOWEST POSITION. WILL CONTINUE TO MONITOR UNTIL DAY SHIFT NURSE ASSUMES CARE.
[2020-07-18 05:03] LABS: BASOPHILS ABSOLUTE AUTO 0.03 K/mm3 (0.00-0.23); BASOPHILS PERCENT AUTO 0 % (0-2); EOSINOPHILS ABSOLUTE AUTO 0.28 K/mm3 (0.00-0.68); EOSINOPHILS PERCENT AUTO 3 % (0-6); Hematocrit 35.6 % (37.0-53.0); Hemoglobin 11.5 g/dL (13.5-17.5); IMMATURE GRAN ABSOLUTE AUTO 0.04 K/mm3 (0.00-0.10); IMMATURE GRAN PERCENT AUTO 1 % (0-1); LYMPHOCYTES ABSOLUTE AUTO 1.57 K/mm3 (0.84-5.20); LYMPHOCYTES PERCENT AUTO 18 % (21-46); MONOCYTES ABSOLUTE AUTO 0.53 K/mm3 (0.16-1.47); MONOCYTES PERCENT AUTO 6 % (4-13); Mean Corpuscular HGB 30.5 pg (26.0-34.0); Mean Corpuscular HGB Conc 32.3 g/dL (31.5-36.5); Mean Corpuscular Volume 94 fL (80-100); Mean Platelet Volume 9.7 fL (9.1-12.4); NEUTROPHILS PERCENT AUTO 71 % (41-73); Platelet Count 201 K/mm3 (150-400); RDW Coefficient Variation 14.1 % (11.7-14.2); RDW Standard Deviation 48.8 fL (35.1-46.3); Red Blood Cell Count 3.77 M/mm3 (4.30-5.90); White Blood Cell Count 8.55 K/mm3 (4.00-11.30)
[2020-07-18 05:24] LABS: Alanine Aminotransfer (ALT/SGP 15 U/L (12-78); Albumin, Blood 2.4 g/dL (3.4-5.0); Albumin/Globulin Ratio 0.7 (0.8-1.8); Alk Phos 56 U/L (50-136); Anion Gap 6 mmol/L (6-16); Aspartate Aminotrans (AST/SGOT 13 U/L (12-37); Bilirubin, Total 0.8 mg/dL (0.1-1.0); Blood Urea Nitrogen 22 mg/dL (8-24); Bun/Creatinine Ratio 28.9 (12.0-20.0); CO2, Blood 25 mmol/L (21-32); Calcium, Blood 7.5 mg/dL (8.5-10.1); Chloride, Blood 107 mmol/L (98-108); Creatinine, Blood 0.76 mg/dL (0.60-1.20); Globulin, Blood 3.5 g/dL (2.2-4.0); Glomerular Filtration Rate >60 (60-); Glucose, Blood 114 mg/dL (70-99); Sodium, Blood 138 mmol/L (136-145); Total Protein, Blood 5.9 g/dL (6.4-8.2)
--- NOTE | 2020-07-18 19:30 | NUR ---
SHIFT SUMMARY PT IS A/O X3 AND A 1 ASSIST W/FWW IN THE ROOM. PT WORKED WITH PTd. X2 TODAY. DISCUSSED DISCHARGE OPTIONS WITH SAP FUNCTIONAL ANALYST AND PT IS TO DISCHARGE HOME INSTEAD OF A SNF. ICE TO THE R LEG. INCISION DRESSINGS C/D/I. VSS. GAVE REPORT TO DOCTOR OF VETERINARY MEDICINE RN.
--- NOTE | 2020-07-19 05:14 | NUR ---
SHIFT SUMMARY ASSUMED CARE OF PT AT 1900. PT IS A/OX4. HEART SOUNDS REGULAR. LUNG SOUNDS CLEAR. PT USED URINAL T/O THE NIGHT. PT R LEG IS SWOLLEN AND WARM TO THE TOUCH. PT DENIES PAIN. PT IS A 1P SBA WITH WALKER. NO ACUTE EVENTS DURING THE NIGHT. PT SLEPT T/O THE NIGHT. CALL LIGHT IN REACH, BED IN LOWEST POSITION.
[2020-07-19] MEDS ORDERED: LOSA50 PO (12:19)
[2020-07-19] MEDS ORDERED: CEPH500 PO (12:20)
--- NOTE | 2020-07-19 12:59 | NUR ---
DISCHARGE HOME PATIENT DISCHARGED HOME WITH [facility] RESUMPTION. [facility] NOTIIFED VIA VOICE MESSAGE. IV REMOVED INTACT. DISCHARGE INSTRUCTIONS REVIEWED WITH PATIENT, HE VERBALIZED UNDERSTANDING. WRITTEN INFO SENT HOME. PATIENT WAS ESCORTED TO THE ENTRANCE VIA WHEEL CHAIR BY MOHIT. HE HAS A RIDE HOME FROM A FRIEND. PATIENT STABLE AT TIME OF DISCHARGE.
== END 2020-07-19 13:00 | disposition home health service (06) | DRG 603 ==
LOC: ER 16:56 → MEDS 21:04
PROVIDERS: Emergency Medicine; Internal Medicine; Physician Assistant; ADMIT Internal Medicine
DX: L03.115 Cellulitis of right lower limb (principal); I48.0 Paroxysmal atrial fibrillation; I10 Essential (primary) hypertension; Z96.651 Presence of right artificial knee joint; N40.0 Benign prostatic hyperplasia without lower urinary tract symptoms; G60.0 Hereditary motor and sensory neuropathy; Z79.82 Long term (current) use of aspirin
CPT/HCPCS: 36415; 73562-RT; 80053; 82947; 83605; 84145; 85025; 86140; 87040; 93971; 96365; 96366; 97110; 97116; 97161; 97530; 99284-25; A9270; J0690; J1170; J1650; J1885; J3370; J7050

== ENCOUNTER → 2020-10-06 | Outpatient (CLI) | payer OTHER ==
[~2020-10-06] MED LIST changes: +BUMETANIDE2 MG PO; +LOSA50 PO; +METOPROLOL SUCC25 MG PO
[2020-10-06 20:05] LABS: BASOPHILS ABSOLUTE AUTO 0.03 K/mm3 (0.00-0.23); BASOPHILS PERCENT AUTO 1 % (0-2); EOSINOPHILS ABSOLUTE AUTO 0.13 K/mm3 (0.00-0.68); EOSINOPHILS PERCENT AUTO 2 % (0-6); Hematocrit 41.2 % (37.0-53.0); Hemoglobin 13.3 g/dL (13.5-17.5); IMMATURE GRAN ABSOLUTE AUTO 0.01 K/mm3 (0.00-0.10); IMMATURE GRAN PERCENT AUTO 0 % (0-1); LYMPHOCYTES PERCENT AUTO 28 % (21-46); MONOCYTES ABSOLUTE AUTO 0.36 K/mm3 (0.16-1.47); MONOCYTES PERCENT AUTO 6 % (4-13); Mean Corpuscular HGB Conc 32.3 g/dL (31.5-36.5); Mean Corpuscular Volume 93 fL (80-100); Mean Platelet Volume 11.3 fL (9.1-12.4); NEUTROPHILS PERCENT AUTO 64 % (41-73); Platelet Count 165 K/mm3 (150-400); RDW Coefficient Variation 13.7 % (11.7-14.2); RDW Standard Deviation 46.4 fL (35.1-46.3); Red Blood Cell Count 4.44 M/mm3 (4.30-5.90); White Blood Cell Count 6.43 K/mm3 (4.00-11.30)
[2020-10-06 20:55] LABS: Alanine Aminotransfer (ALT/SGP 22 U/L (12-78); Albumin, Blood 3.4 g/dL (3.4-5.0); Alk Phos 58 U/L (50-136); Anion Gap 3 mmol/L (6-16); Aspartate Aminotrans (AST/SGOT 17 U/L (12-37); Bilirubin, Total 0.8 mg/dL (0.1-1.0); Blood Urea Nitrogen 16 mg/dL (8-24); Bun/Creatinine Ratio 18.7 (12.0-20.0); CO2, Blood 28 mmol/L (21-32); Calcium, Blood 8.3 mg/dL (8.5-10.1); Chloride, Blood 108 mmol/L (98-108); Creatinine, Blood 0.85 mg/dL (0.60-1.20); Globulin, Blood 3.4 g/dL (2.2-4.0); Glomerular Filtration Rate >60 (60-); Glucose, Blood 157 mg/dL (70-99); Sodium, Blood 139 mmol/L (136-145); Total Protein, Blood 6.8 g/dL (6.4-8.2)
== END | disposition home or self-care (01) ==
LOC: LAB SHORT 15:38 → LAB 15:38
PROVIDERS: Hospitalist
DX: I10 Essential (primary) hypertension (principal)
CPT/HCPCS: 80053; 84443; 85025

== ENCOUNTER → 2021-05-14 | Outpatient (CLI) | payer OTHER ==
[2021-05-14 19:37] LABS: BASOPHILS ABSOLUTE AUTO 0.03 K/mm3 (0.00-0.23); BASOPHILS PERCENT AUTO 1 % (0-2); EOSINOPHILS ABSOLUTE AUTO 0.15 K/mm3 (0.00-0.68); EOSINOPHILS PERCENT AUTO 2 % (0-6); Hematocrit 41.8 % (37.0-53.0); Hemoglobin 13.6 g/dL (13.5-17.5); IMMATURE GRAN ABSOLUTE AUTO 0.01 K/mm3 (0.00-0.10); IMMATURE GRAN PERCENT AUTO 0 % (0-1); LYMPHOCYTES ABSOLUTE AUTO 1.62 K/mm3 (0.84-5.20); LYMPHOCYTES PERCENT AUTO 25 % (21-46); MONOCYTES ABSOLUTE AUTO 0.25 K/mm3 (0.16-1.47); MONOCYTES PERCENT AUTO 4 % (4-13); Mean Corpuscular HGB 31.3 pg (26.0-34.0); Mean Corpuscular HGB Conc 32.5 g/dL (31.5-36.5); Mean Corpuscular Volume 96 fL (80-100); Mean Platelet Volume 10.9 fL (9.1-12.4); NEUTROPHILS ABSOLUTE AUTO 4.49 K/mm3 (1.96-9.15); NEUTROPHILS PERCENT AUTO 69 % (41-73); Platelet Count 154 K/mm3 (150-400); RDW Coefficient Variation 13.2 % (11.7-14.2); RDW Standard Deviation 46.9 fL (35.1-46.3); Red Blood Cell Count 4.34 M/mm3 (4.30-5.90); White Blood Cell Count 6.55 K/mm3 (4.00-11.30)
== END | disposition home or self-care (01) ==
LOC: LAB SHORT 15:00
PROVIDERS: Hospitalist
DX: R53.83 Other fatigue (principal)
CPT/HCPCS: 82607; 85025; 85651

== ENCOUNTER 2021-07-25 20:24 | Inpatient (IN) | payer OTHER ==
[~2021-07-25] VITALS: Ht 188 cm; Wt 86.0 kg
[2021-07-25 21:23] LABS: BASOPHILS ABSOLUTE AUTO 0.03 K/mm3 (0.00-0.23); BASOPHILS PERCENT AUTO 0 % (0-2); EOSINOPHILS ABSOLUTE AUTO 0.15 K/mm3 (0.00-0.68); EOSINOPHILS PERCENT AUTO 2 % (0-6); Hematocrit 45.7 % (37.0-53.0); Hemoglobin 15.5 g/dL (13.5-17.5); IMMATURE GRAN ABSOLUTE AUTO 0.02 K/mm3 (0.00-0.10); IMMATURE GRAN PERCENT AUTO 0 % (0-1); LYMPHOCYTES ABSOLUTE AUTO 2.28 K/mm3 (0.84-5.20); LYMPHOCYTES PERCENT AUTO 25 % (21-46); MONOCYTES PERCENT AUTO 4 % (4-13); Mean Corpuscular HGB 32.2 pg (26.0-34.0); Mean Corpuscular HGB Conc 33.9 g/dL (31.5-36.5); Mean Corpuscular Volume 95 fL (80-100); Mean Platelet Volume 10.9 fL (9.1-12.4); NEUTROPHILS ABSOLUTE AUTO 6.15 K/mm3 (1.96-9.15); NEUTROPHILS PERCENT AUTO 68 % (41-73); Platelet Count 166 K/mm3 (150-400); RDW Coefficient Variation 12.9 % (11.7-14.2); RDW Standard Deviation 45.5 fL (35.1-46.3); Red Blood Cell Count 4.81 M/mm3 (4.30-5.90); White Blood Cell Count 9.03 K/mm3 (4.00-11.30)
[2021-07-25 21:40] LABS: Alanine Aminotransfer (ALT/SGP 24 U/L (12-78); Albumin, Blood 3.4 g/dL (3.4-5.0); Albumin/Globulin Ratio 0.9 (0.8-1.8); Alk Phos 51 U/L (50-136); Anion Gap 5 mmol/L (6-16); Aspartate Aminotrans (AST/SGOT 41 U/L (12-37); Bilirubin, Total 0.5 mg/dL (0.1-1.0); Blood Urea Nitrogen 19 mg/dL (8-24); Bun/Creatinine Ratio 19.5 (12.0-20.0); CO2, Blood 25 mmol/L (21-32); Calcium, Blood 8.5 mg/dL (8.5-10.1); Chloride, Blood 108 mmol/L (98-108); Creatinine, Blood 0.97 mg/dL (0.60-1.20); Globulin, Blood 3.6 g/dL (2.2-4.0); Glomerular Filtration Rate >60 (60-); Glucose, Blood 135 mg/dL (70-99); Magnesium, Blood 1.9 mg/dL (1.6-2.4); Potassium, Blood 4.2 mmol/L (3.5-5.5); Sodium, Blood 138 mmol/L (136-145)
[2021-07-25 23:00] LABS: Anti-Xa UFH, PHA Monitoring <0.10 IU/mL; International Normalized Ratio 1.06; Prothrombin Time Results 11.1 Sec (9.7-11.5)
[2021-07-26 03:40] LABS: BASOPHILS ABSOLUTE AUTO 0.04 K/mm3 (0.00-0.23); BASOPHILS PERCENT AUTO 0 % (0-2); EOSINOPHILS ABSOLUTE AUTO 0.18 K/mm3 (0.00-0.68); EOSINOPHILS PERCENT AUTO 2 % (0-6); Hematocrit 48.4 % (37.0-53.0); Hemoglobin 15.7 g/dL (13.5-17.5); IMMATURE GRAN ABSOLUTE AUTO 0.03 K/mm3 (0.00-0.10); IMMATURE GRAN PERCENT AUTO 0 % (0-1); LYMPHOCYTES ABSOLUTE AUTO 3.34 K/mm3 (0.84-5.20); LYMPHOCYTES PERCENT AUTO 33 % (21-46); MONOCYTES ABSOLUTE AUTO 0.54 K/mm3 (0.16-1.47); MONOCYTES PERCENT AUTO 5 % (4-13); Mean Corpuscular HGB 31.2 pg (26.0-34.0); Mean Corpuscular HGB Conc 32.4 g/dL (31.5-36.5); Mean Corpuscular Volume 96 fL (80-100); Mean Platelet Volume 10.6 fL (9.1-12.4); NEUTROPHILS ABSOLUTE AUTO 5.98 K/mm3 (1.96-9.15); NEUTROPHILS PERCENT AUTO 59 % (41-73); Platelet Count 141 K/mm3 (150-400); Red Blood Cell Count 5.04 M/mm3 (4.30-5.90); White Blood Cell Count 10.11 K/mm3 (4.00-11.30)
[2021-07-26 04:12] LABS: Alanine Aminotransfer (ALT/SGP 30 U/L (12-78); Albumin, Blood 3.5 g/dL (3.4-5.0); Alk Phos 42 U/L (50-136); Anion Gap 7 mmol/L (6-16); Aspartate Aminotrans (AST/SGOT 130 U/L (12-37); Bilirubin, Total 0.8 mg/dL (0.1-1.0); Blood Urea Nitrogen 19 mg/dL (8-24); Bun/Creatinine Ratio 21.8 (12.0-20.0); CO2, Blood 26 mmol/L (21-32); Calcium, Blood 8.9 mg/dL (8.5-10.1); Chloride, Blood 106 mmol/L (98-108); Creatinine, Blood 0.87 mg/dL (0.60-1.20); Globulin, Blood 3.6 g/dL (2.2-4.0); Glomerular Filtration Rate >60 (60-); Glucose, Blood 110 mg/dL (70-99); Potassium, Blood 4.4 mmol/L (3.5-5.5); Sodium, Blood 139 mmol/L (136-145); Total Protein, Blood 7.1 g/dL (6.4-8.2)
--- NOTE | 2021-07-26 04:26 | NUR ---
PHONE TO DOC THIS RN NOTIFIES DR THOMPSON OF [facility] OF 34.8. NO FURTHER ORDERS AT THIS TIME, CONTINUE TO TREND [facility].
--- NOTE | 2021-07-26 05:50 | NUR ---
HEPARIN ON STANDBY (0540) PER PHARMACIST LUCHO, TO BE RESTARTED AT LOWER RATE TO BE ORDERED, AT 0640
--- NOTE | 2021-07-26 08:10 | NUR ---
SHIFT SUMMARY PT AOX4 T/O SHIFT. PT SB-SR 50'S-60'S ON THE MONITOR. BBB W/OCCASIONAL RUNS OF COUPLET PVC'S CONCERNING FOR ONSET OF RUNS OF V-TACH. STRIPS IN CHART. PT DENIES CP, STATES CONTINUED PRESSURE THAT NEARLY RESOLVES TOWARDS END OF SHIFT. PT IS CALM AND COOPERATIVE. ASKES QUESTIONS APROPRIATELY. THIS RN AND BURAK RN PROVIDE EDUCATION REGARDING POSSIBLE CARDIAC CATH WITH PT AND ANSWER PT'S QUESTIONS. PT IS CONTINENT, USES URINAL AT BEDSIDE. HEPARIN PAUSED AT 0540 D/T CRITICAL LAB REPORTED. DISCUSSED WITH LUCHO PHARMACIST, RESTARTED AT 0640 WITH ORDERS TO DRAW ANOTHER PT WITHOUT HOLDING HEPARIN AROUND SAME TIME. HEPARIN RESTARTED AT 12U/KG/HR PER PHARMACIST.
[2021-07-26 10:03] LABS: CHOL/HDL RATIO 3.3; Cholesterol 113 mg/dL (50-200); HDL Cholesterol 34 mg/dL (>39); LDL/HDL RATIO 1.8; Low Density Lipoprotein Chol 61 mg/dL (0-110); Triglycerides 89 mg/dL (30-160); Very Low Density Lipoprot Chol 17 mg/dL (6-32)
[2021-07-26 10:24] LABS: Influenza A, PCR NEGATIVE (NEGATIVE); Influenza B, PCR NEGATIVE (NEGATIVE); Resp Syncytial Virus, PCR NEGATIVE (NEGATIVE); SARS-Cov-2 (COVID-19) PCR, MMC NEGATIVE (NEGATIVE)
--- NOTE | 2021-07-26 11:36 | NUR ---
UPDATE PT TO BEE TENDER FOR PROCEDURE. WILL AWAIT RETURN.
--- NOTE | 2021-07-26 13:15 | NUR ---
PT RETURNS FROM SUPPORT DBA RIGHT RADIAL SITE WITH TR BAND AND 16ML OF AIR. NO SIGNS OF BLEEDING, BRUISING OR HEMATOMA. ARM BOARD IN PLACE. VS STABLE
--- NOTE | 2021-07-26 17:25 | NUR ---
SHIFT SUMMARY PT ALERT AND ORIENTED. VS STABLE. HR HAS BEEN AFIB 50'S THIS AFTERNOON. BP STABLE. PT HAS COMPLAINED OF CANDELARIO SINCE PROCEDURE. RIGHT RADIAL SITE RECOVERED PER PROTOCOL. SITE FREE FROM ANY BRUISING, BLEEDING OR HEMATOMA. ARM BOARD IN PLACE AND PT IS FOLLOWING RIGHT ARM RESTRICTIONS. WILL CONTINUE TO MONITOR AND REPORT TO ONCOMING RN.
--- NOTE | 2021-07-26 19:30 | NUR ---
CARE ASSUMPTION PT LYING IN BED DENYING ANY CP OR PRESSURE. O2 SATS >94% ON RM AIR. BP WNL. TELE SHOWING AFIB IN THE 50'S. PT PULEED HIS IV OUT AND IS REFUSINING TO LET STAFF PLACE A NEW ONE, TECHNICAL SME NOTIFIED.
--- NOTE | 2021-07-27 05:33 | NUR ---
CODE INSPECTOR SUMMARY PT IS AXO X4. PT DENYING ANY CP OR PRESSURE THIS SHIFT. PT HAD PULLED OUT HIS IV AND REFUSED TO LET STAFF PLACE ANOTHER ONE SO HE ONLY RECIEVED 400ML OUT OF THE 1000ML POST-ANGIOGRAM FLUIDS. R RADIAL SITE HAS HAD NO S/S OF BLEEDING OR HEMATOMA. VSS AND PT AFEBRILE, SEE FLOWSHEET. O2 SATS >90% ON RM AIR. TELE SHOWING AFIB 50-60'S THIS SHIFT. WILL REPORT TO ONCOMING RN.
[2021-07-27] MEDS ORDERED: ATOR40TA PO (09:18)
[2021-07-27] MEDS ORDERED: ASPI81CH PO (09:18)
[2021-07-27] MEDS ORDERED: ACET500 PO (09:18)
[2021-07-27] MEDS ORDERED: CLOP75 PO (09:18)
[2021-07-27] MEDS ORDERED: NITR.4SL SL (09:19)
--- NOTE | 2021-07-27 10:30 | NUR ---
DISCHARGE: PT AND CAREGIVER HAVE BEEN PROVIDED WITH DISCHARGE PAPERWORK AND INSTRUCTIONS RE: RADIAL SITE CARE, NEW MEDICATIONS, AND F/UP ORDERS. PT AND CAREGIVER VERBALIZE UNDERSTANDING, ALL QUESTIONS ANSWERED. PT ESCORTED TO VEHICLE VIA W/C W/OUT INCIDENT.
== END 2021-07-27 10:30 | disposition home or self-care (01) | DRG 247 ==
LOC: ER 20:24 → PCU 20:25
PROVIDERS: Internal Medicine; Internal Medicine Cardiovascular Disease; Student in an Organized Health Care Education/Training Program; ADMIT Internal Medicine
PROC: 4A023N7 Measurement of Cardiac Sampling and Pressure, Left Heart, Percutaneous Approach (ICD-10-PCS; principal; 2021-07-26)
PROC: 027034Z Dilation of Coronary Artery, One Artery with Drug-eluting Intraluminal Device, Percutaneous Approach (ICD-10-PCS; 2021-07-26)
PROC: B2111ZZ Fluoroscopy of Multiple Coronary Arteries using Low Osmolar Contrast (ICD-10-PCS; 2021-07-26)
DX: I21.4 Non-ST elevation (NSTEMI) myocardial infarction (principal); Z20.822 Contact with and (suspected) exposure to COVID-19; R79.89 Other specified abnormal findings of blood chemistry; I25.10 Atherosclerotic heart disease of native coronary artery without angina pectoris; Z66 Do not resuscitate; G60.0 Hereditary motor and sensory neuropathy; I10 Essential (primary) hypertension; I48.91 Unspecified atrial fibrillation; N40.0 Benign prostatic hyperplasia without lower urinary tract symptoms; Z90.89 Acquired absence of other organs; Z98.890 Other specified postprocedural states; Z79.899 Other long term (current) drug therapy
CPT/HCPCS: 0241U; 36415; 71045; 76937; 80053; 80061; 83735; 83880; 84484; 85025; 85347; 85520; 85610; 85730; 93005; 93010; 93308; 93321; 93454; 96365; 96375; 99152; 99153; 99285-25; A9270; C1725; C1769; C1874; C1887; C1894; C9600; G0378; J1644; J2250; J3010; J3475; J7030; J7050; Q9967

== ENCOUNTER 2021-09-18 11:22 | Emergency (ER) | payer OTHER ==
[~2021-09-18] VITALS: Ht 185.4 cm; Wt 83.9 kg
[~2021-09-18 11:22] MED LIST changes: +ACET500 PO; +ASPI81CH PO; +ATOR40TA PO; +CLOP75 PO; +NITR.4SL SL
== END 2021-09-18 15:57 | disposition home or self-care (01) ==
LOC: ER 11:22
DX: K91.840 Postprocedural hemorrhage of a digestive system organ or structure following a digestive system procedure (principal); I10 Essential (primary) hypertension; I48.91 Unspecified atrial fibrillation; I25.2 Old myocardial infarction; Z79.899 Other long term (current) drug therapy
CPT/HCPCS: 99282

== ENCOUNTER → 2022-02-25 | Outpatient (CLI) | payer OTHER ==
[2022-02-25 18:06] LABS: BASOPHILS ABSOLUTE AUTO 0.02 K/mm3 (0.00-0.23); BASOPHILS PERCENT AUTO 0 % (0-2); EOSINOPHILS ABSOLUTE AUTO 0.15 K/mm3 (0.00-0.68); EOSINOPHILS PERCENT AUTO 2 % (0-6); Hematocrit 44.6 % (37.0-53.0); Hemoglobin 14.4 g/dL (13.5-17.5); IMMATURE GRAN ABSOLUTE AUTO 0.01 K/mm3 (0.00-0.10); IMMATURE GRAN PERCENT AUTO 0 % (0-1); LYMPHOCYTES ABSOLUTE AUTO 2.43 K/mm3 (0.84-5.20); LYMPHOCYTES PERCENT AUTO 34 % (21-46); MONOCYTES ABSOLUTE AUTO 0.44 K/mm3 (0.16-1.47); MONOCYTES PERCENT AUTO 6 % (4-13); Mean Corpuscular HGB 31.2 pg (26.0-34.0); Mean Corpuscular HGB Conc 32.3 g/dL (31.5-36.5); Mean Corpuscular Volume 97 fL (80-100); Mean Platelet Volume 11.5 fL (9.1-12.4); NEUTROPHILS ABSOLUTE AUTO 4.18 K/mm3 (1.96-9.15); NEUTROPHILS PERCENT AUTO 58 % (41-73); Platelet Count 141 K/mm3 (150-400); RDW Standard Deviation 49.6 fL (35.1-46.3); Red Blood Cell Count 4.62 M/mm3 (4.30-5.90); White Blood Cell Count 7.23 K/mm3 (4.00-11.30)
[2022-02-25 18:35] LABS: Albumin, Blood 3.4 g/dL (3.4-5.0); Bilirubin, Total 1.1 mg/dL (0.1-1.0); Bun/Creatinine Ratio 19.7 (12.0-20.0); Calcium, Blood 8.4 mg/dL (8.5-10.1); Creatinine, Blood 0.91 mg/dL (0.60-1.20); Globulin, Blood 3.4 g/dL (2.2-4.0); Potassium, Blood 3.9 mmol/L (3.5-5.5); Total Protein, Blood 6.8 g/dL (6.4-8.2)
== END | disposition home or self-care (01) ==
LOC: LAB SHORT 18:02
PROVIDERS: Hospitalist
DX: R53.83 Other fatigue (principal); R31.0 Gross hematuria
CPT/HCPCS: 80053; 85025; 87086

== ENCOUNTER → 2022-04-06 | Outpatient (CLI) | payer OTHER | END | disposition home or self-care (01) | LOC: PLD 11:15 → LAB SHORT 11:15 | DX: L82.1 Other seborrheic keratosis (principal) | CPT/HCPCS: 88305 ==

== ENCOUNTER 2022-05-13 20:44 | Emergency (ER) | payer OTHER ==
[~2022-05-13] VITALS: Ht 185.4 cm; Wt 83.9 kg
[2022-05-14 00:03] LABS: Source, Urine Clean Catch
[2022-05-14 00:15] LABS: Bilirubin, Urine Neg (Neg); Blood, Urine 5+ (Neg); Glucose Qualitative, Urine Neg (Neg); Ketones, Urine 2+ (Neg); Leukocyte Esterase, Urine 1+ (Neg); Nitrite, Urine Neg (Neg); Protein, Urine 4+ (Neg); Urobilinogen, Urine NORM (Normal)
[2022-05-14 00:19] LABS: Appearance, Urine Turbid (Clear); Color, Urine Red (P-Yellow)
[2022-05-14 00:20] LABS: BASOPHILS ABSOLUTE AUTO 0.03 K/mm3 (0.00-0.23); BASOPHILS PERCENT AUTO 0 % (0-2); EOSINOPHILS ABSOLUTE AUTO 0.03 K/mm3 (0.00-0.68); EOSINOPHILS PERCENT AUTO 0 % (0-6); Hematocrit 44.1 % (37.0-53.0); Hemoglobin 14.9 g/dL (13.5-17.5); IMMATURE GRAN ABSOLUTE AUTO 0.02 K/mm3 (0.00-0.10); IMMATURE GRAN PERCENT AUTO 0 % (0-1); LYMPHOCYTES ABSOLUTE AUTO 0.94 K/mm3 (0.84-5.20); LYMPHOCYTES PERCENT AUTO 8 % (21-46); MONOCYTES PERCENT AUTO 5 % (4-13); Mean Corpuscular HGB 31.6 pg (26.0-34.0); Mean Corpuscular HGB Conc 33.8 g/dL (31.5-36.5); Mean Corpuscular Volume 93 fL (80-100); Mean Platelet Volume 10.7 fL (9.1-12.4); NEUTROPHILS ABSOLUTE AUTO 9.67 K/mm3 (1.96-9.15); NEUTROPHILS PERCENT AUTO 86 % (41-73); Platelet Count 153 K/mm3 (150-400); RDW Coefficient Variation 13.9 % (11.7-14.2); RDW Standard Deviation 47.5 fL (35.1-46.3); Red Blood Cell Count 4.72 M/mm3 (4.30-5.90); White Blood Cell Count 11.19 K/mm3 (4.00-11.30)
[2022-05-14 00:28] LABS: Bacteria Rare /hpf; Red Blood Cells, Urine TNTC /hpf (0-2); Squamous Epithelial Cells Not Seen /hpf (Few)
[2022-05-14 00:38] LABS: Albumin, Blood 3.5 g/dL (3.4-5.0); Bilirubin, Total 1.3 mg/dL (0.1-1.0); Bun/Creatinine Ratio 20.9 (12.0-20.0); Calcium, Blood 8.6 mg/dL (8.5-10.1); Creatinine, Blood 0.91 mg/dL (0.60-1.20); Globulin, Blood 3.6 g/dL (2.2-4.0); Potassium, Blood 4.4 mmol/L (3.5-5.5); Total Protein, Blood 7.1 g/dL (6.4-8.2)
[2022-05-14] MEDS ORDERED: MIRALAX17 GM PO (03:07)
== END 2022-05-14 08:09 | disposition home or self-care (01) ==
LOC: ER 20:44
PROVIDERS: Student in an Organized Health Care Education/Training Program
DX: K59.00 Constipation, unspecified (principal); R33.9 Retention of urine, unspecified; Z79.899 Other long term (current) drug therapy; Z79.82 Long term (current) use of aspirin
CPT/HCPCS: 51798; 74177; 80053; 81001; 85025; A9270; J1170; J1885; Q9967

== ENCOUNTER 2022-05-15 13:59 | Emergency (ER) | payer OTHER ==
[~2022-05-15] VITALS: Ht 185.4 cm; Wt 83.9 kg
[~2022-05-15 13:59] MED LIST changes: +MIRALAX17 GM PO
[2022-05-15 20:22] LABS: BASOPHILS ABSOLUTE AUTO 0.01 K/mm3 (0.00-0.23); BASOPHILS PERCENT AUTO 0 % (0-2); EOSINOPHILS ABSOLUTE AUTO 0.17 K/mm3 (0.00-0.68); EOSINOPHILS PERCENT AUTO 3 % (0-6); Hematocrit 40.5 % (37.0-53.0); Hemoglobin 13.5 g/dL (13.5-17.5); IMMATURE GRAN ABSOLUTE AUTO 0.01 K/mm3 (0.00-0.10); IMMATURE GRAN PERCENT AUTO 0 % (0-1); LYMPHOCYTES ABSOLUTE AUTO 2.15 K/mm3 (0.84-5.20); LYMPHOCYTES PERCENT AUTO 33 % (21-46); MONOCYTES ABSOLUTE AUTO 0.44 K/mm3 (0.16-1.47); MONOCYTES PERCENT AUTO 7 % (4-13); Mean Corpuscular HGB 31.6 pg (26.0-34.0); Mean Corpuscular HGB Conc 33.3 g/dL (31.5-36.5); Mean Corpuscular Volume 95 fL (80-100); Mean Platelet Volume 10.6 fL (9.1-12.4); NEUTROPHILS ABSOLUTE AUTO 3.73 K/mm3 (1.96-9.15); NEUTROPHILS PERCENT AUTO 57 % (41-73); Platelet Count 145 K/mm3 (150-400); RDW Coefficient Variation 14.2 % (11.7-14.2); RDW Standard Deviation 49.4 fL (35.1-46.3); Red Blood Cell Count 4.27 M/mm3 (4.30-5.90); White Blood Cell Count 6.51 K/mm3 (4.00-11.30)
[2022-05-15 20:40] LABS: Bun/Creatinine Ratio 26.3 (12.0-20.0); Calcium, Blood 8.3 mg/dL (8.5-10.1); Creatinine, Blood 0.84 mg/dL (0.60-1.20); Potassium, Blood 4.2 mmol/L (3.5-5.5)
== END 2022-05-15 22:35 | disposition home or self-care (01) ==
LOC: ER 13:59
PROVIDERS: Emergency Medicine
DX: R33.9 Retention of urine, unspecified (principal); R31.9 Hematuria, unspecified; Z79.899 Other long term (current) drug therapy; Z79.82 Long term (current) use of aspirin
CPT/HCPCS: 36415; 51798; 80048; 85025

== ENCOUNTER → 2022-09-02 | Outpatient (CLI) | payer OTHER ==
[2022-09-02 15:45] LABS: BASOPHILS ABSOLUTE AUTO 0.02 K/mm3 (0.00-0.23); BASOPHILS PERCENT AUTO 0 % (0-2); EOSINOPHILS ABSOLUTE AUTO 0.11 K/mm3 (0.00-0.68); EOSINOPHILS PERCENT AUTO 2 % (0-6); Hematocrit 45.4 % (37.0-53.0); IMMATURE GRAN ABSOLUTE AUTO 0.01 K/mm3 (0.00-0.10); IMMATURE GRAN PERCENT AUTO 0 % (0-1); LYMPHOCYTES ABSOLUTE AUTO 1.93 K/mm3 (0.84-5.20); LYMPHOCYTES PERCENT AUTO 28 % (21-46); MONOCYTES ABSOLUTE AUTO 0.25 K/mm3 (0.16-1.47); MONOCYTES PERCENT AUTO 4 % (4-13); Mean Corpuscular HGB 29.9 pg (26.0-34.0); Mean Corpuscular Volume 90 fL (80-100); Mean Platelet Volume 11.9 fL (9.1-12.4); NEUTROPHILS ABSOLUTE AUTO 4.59 K/mm3 (1.96-9.15); NEUTROPHILS PERCENT AUTO 67 % (41-73); Platelet Count 147 K/mm3 (150-400); RDW Coefficient Variation 14.6 % (11.7-14.2); RDW Standard Deviation 48.5 fL (35.1-46.3); Red Blood Cell Count 5.02 M/mm3 (4.30-5.90); White Blood Cell Count 6.91 K/mm3 (4.00-11.30)
[2022-09-03 06:49] LABS: Albumin, Blood 3.4 g/dL (3.4-5.0); Albumin/Globulin Ratio 1.1 (0.8-1.8); Bun/Creatinine Ratio 21.8 (12.0-20.0); Calcium, Blood 8.5 mg/dL (8.5-10.1); Creatinine, Blood 0.87 mg/dL (0.60-1.20); Globulin, Blood 3.1 g/dL (2.2-4.0); Potassium, Blood 3.9 mmol/L (3.5-5.5); Thyroid Stimulating Hormone 2.91 uIU/mL (0.360-4.800); Total Protein, Blood 6.5 g/dL (6.4-8.2)
== END | disposition home or self-care (01) ==
LOC: LAB SHORT 10:00 → LAB 10:00
PROVIDERS: Hospitalist
DX: R53.83 Other fatigue (principal)
CPT/HCPCS: 80053; 84443; 85025

== ENCOUNTER 2022-10-04 09:45 | Inpatient (IN) | payer OTHER ==
[~2022-10-04] VITALS: Ht 185.4 cm; Wt 84.2 kg
[2022-10-04 10:14] LABS: BASOPHILS ABSOLUTE AUTO 0.03 K/mm3 (0.00-0.23); BASOPHILS PERCENT AUTO 0 % (0-2); EOSINOPHILS ABSOLUTE AUTO 0.01 K/mm3 (0.00-0.68); EOSINOPHILS PERCENT AUTO 0 % (0-6); Hematocrit 46.1 % (37.0-53.0); Hemoglobin 15.3 g/dL (13.5-17.5); IMMATURE GRAN ABSOLUTE AUTO 0.04 K/mm3 (0.00-0.10); IMMATURE GRAN PERCENT AUTO 0 % (0-1); LYMPHOCYTES PERCENT AUTO 11 % (21-46); MONOCYTES ABSOLUTE AUTO 0.34 K/mm3 (0.16-1.47); MONOCYTES PERCENT AUTO 3 % (4-13); Mean Corpuscular HGB 29.9 pg (26.0-34.0); Mean Corpuscular HGB Conc 33.2 g/dL (31.5-36.5); Mean Corpuscular Volume 90 fL (80-100); Mean Platelet Volume 10.1 fL (9.1-12.4); NEUTROPHILS ABSOLUTE AUTO 10.29 K/mm3 (1.96-9.15); NEUTROPHILS PERCENT AUTO 86 % (41-73); Platelet Count 181 K/mm3 (150-400); RDW Coefficient Variation 14.7 % (11.7-14.2); RDW Standard Deviation 49.1 fL (35.1-46.3); Red Blood Cell Count 5.12 M/mm3 (4.30-5.90); White Blood Cell Count 12.01 K/mm3 (4.00-11.30)
[2022-10-04] MEDS ORDERED: Oxybutynin Chlo15 MG PO (10:27)
[2022-10-04 10:32] LABS: International Normalized Ratio 1.06; Prothrombin Time Results 11.1 Sec (9.7-11.5)
[2022-10-04 10:34] LABS: Albumin, Blood 3.5 g/dL (3.4-5.0); Albumin/Globulin Ratio 0.9 (0.8-1.8); Bilirubin, Total 0.9 mg/dL (0.1-1.0); Bun/Creatinine Ratio 22.5 (12.0-20.0); Calcium, Blood 8.7 mg/dL (8.5-10.1); Creatinine, Blood 0.84 mg/dL (0.60-1.20); Globulin, Blood 4.1 g/dL (2.2-4.0); Total Protein, Blood 7.6 g/dL (6.4-8.2)
--- NOTE | 2022-10-04 12:35 | NUR ---
ED Palliative Care Consult Spoke with Dr Paris and discussed case. Pt to the ED with significant stroke. Caregiver has left to get Pt's spouse. Plan to to admit and in the next 24 hours family may benefit from goals of care conversation pending Pt's response. Pt resting on gurney upon arrival. No family at bedside. Pt is A&OX4 and denies pain, dyspnea, and anxiety. Pt agreeable with plan to be admitted and also agreeable for continued PC visits. Offered brief supportive visit. Palliative Care will F/U for supportive and therapeutic visits.
[2022-10-04] MEDS ORDERED: METO25ER PO (17:10)
--- NOTE | 2022-10-04 17:12 | NUR ---
ADMIT NOTE Pt responding to verbal stimuli, oriented x4; calm and cooperative with care. Left facial droop, bilaterlal right gaze, right pupil 2mm not reactive to light, left eye 3mm sluggish. Left arm flaccid, left leg minimal gross movement noted. Pt hiccuping, pt family stating that he has been doing that on/off all day. Pt denies pain, chest pain/pressure, sob, nausea, dizziness at this time. Tele sinus with pac's, bp elevated noted, within limits. Spo2 >90% on ra, breathing even and unlabored. Abd soft, nontender, hypoactive bt. Pt able to make needs known. Other vss. No other acute changes noted. Will continue to monitor.
--- NOTE | 2022-10-04 18:42 | NUR ---
I have reviewed the nursing education consultant documentation and am in agreement
[2022-10-04 22:28] LABS: Magnesium, Blood 1.9 mg/dL (1.6-2.4)
[2022-10-04 22:29] LABS: Phosphorus, Blood 2.4 mg/dL (2.5-4.9)
[2022-10-05 04:47] LABS: Hematocrit 45.5 % (37.0-53.0); Hemoglobin 15.2 g/dL (13.5-17.5); Mean Corpuscular HGB 30.1 pg (26.0-34.0); Mean Corpuscular HGB Conc 33.4 g/dL (31.5-36.5); Mean Corpuscular Volume 90 fL (80-100); Mean Platelet Volume 10.2 fL (9.1-12.4); Platelet Count 201 K/mm3 (150-400); RDW Standard Deviation 50.4 fL (35.1-46.3); Red Blood Cell Count 5.05 M/mm3 (4.30-5.90); White Blood Cell Count 12.84 K/mm3 (4.00-11.30)
[2022-10-05 05:07] LABS: Anion Gap 5 mmol/L (6-16); Blood Urea Nitrogen 20 mg/dL (8-24); CHOL/HDL RATIO 3.2; CO2, Blood 27 mmol/L (21-32); Calcium, Blood 8.6 mg/dL (8.5-10.1); Chloride, Blood 105 mmol/L (98-108); Cholesterol 110 mg/dL (50-200); Creatinine, Blood 0.83 mg/dL (0.60-1.20); Glomerular Filtration Rate 84 (60-); Glucose, Blood 139 mg/dL (70-99); HDL Cholesterol 34 mg/dL (>39); LDL/HDL RATIO 1.6; Low Density Lipoprotein Chol 55 mg/dL (0-110); Potassium, Blood 4.1 mmol/L (3.5-5.5); Sodium, Blood 137 mmol/L (136-145); Triglycerides 103 mg/dL (30-160); Very Low Density Lipoprot Chol 20 mg/dL (6-32)
--- NOTE | 2022-10-05 05:42 | NUR ---
SHIFT SUMMARY A/Ox4 AND IS COOPERATIVE WITH CARE PROVIDED BY MEMBERS OF STAFF. MENTATION WELL NEURO FUNCTION HAVE IMPROVED T/O THE SHIFT. PT ABLE TO ANSWER QUESTIONS AND MAKE NEEDS KNOWN, ALTHOUGH SPEECH CONTINUES TO BE SLURRED. L SIDED FACIAL DROOP/L SIDED WEAKNESS STILL PRESENT. PT ABLE TO LIFT LEFT ARM SLIGHTLY OFF BED AND ABLE TO WIGGLE BOTH FINGERS AND TOES. NO REPORTS OF SENSATON LOSS OR TINGLING OF THIS NOTE. RIGHT SIDED GAZE HAS RELAXED FOR PT IS ABLE TO LOOK FROM SIDE TO SIDE AND FOCUS ON OBJECTS WHEN REQUESTED. PUPILS CONTINUE TO BE SLIGHLY UNEQUAL, BUT BOTH ARE REACTIVE TO LIGHT. RESPONDS TO BOTH TACTILE AND VERBAL STIMULUS. CARDIAC PINEDO, REMAINS IN AFIB 70-90'S WITH NO REPORTS OF CP OR PRESSURE REPORTED T/O THE NIGHT. SBP ELEVATED BUT HAS BEEN TRENDING DOWN. RESPIRATORY PINEDO, PT MAINTAINS SPO2 >95% ON 2L VIA NC, NO SOB OR DYSPNEA NOTED. INCONTINENT/CONTINENT OF URINE, ATTENDS IN PLACE AND CHANGED PRN. Q2 TURNS WELL Q4HR NEURO CHECKS PERFORMED ORDERED. PT TO WORK WITH PT/OT WELL UNDERGO SPEECH EVAL THIS AM. PT TO ALSO RECEIVE REPEAT CT THIS AM. NO NEW ORDERS AT THIS TIME, WILL REPORT TO JARED BENTLEY.
--- NOTE | 2022-10-05 10:08 | NUR ---
Brief supportive visit this AM. Pt receiving echo in the room. Met with Pt's son Bunny chaidez in [place]. Reviewed plan of care with son reporting spouse recorded video for Hospitalist to view. Pt's wishes are no life prolonging measures including artificial nutrition by tube. Son reports his sister (Pt's daughter will be visiting today and she will bring documents of Pt's wishes and Hproxy. Spoke with Dr Blackwell and discussed case. Palliative Care will F/U when daughter arrives for supportive visit.
--- NOTE | 2022-10-05 11:22 | NUR ---
AM NOTE PT IS ALERT AND ORIENTATED X4. DENIES CHEST PAIN, SHORTNESS OF BREATH, DIZZINESS, NAUSEA. COMPLAINTS OF DRY MOUTH. PT HAD ECHOCARDIOGRAM, AND CT SCAN, BUT THEY HAVE NOT RESULTED AT THIS TIME. PUPILS AND RIGHT EYE GAZE HAVE IMPROVED SINCE LAST ASSESSMENT ALONG WITH MININAL NICOLAS MOTOR FUNCTION. HE IS ABLE TO VERBALIZE NEEDS AND DENIES ANY NEEDS AT THIS TIME. PALLATIVE CARE AND CASE MANAGEMENT CONSULTINGH REGARDING COMFORT CARE MEASURES. WILL CONTIUUE TO MONITOR STATUS.
--- NOTE | 2022-10-05 11:58 | NUR ---
Received call from Primary SHEREE Villatoro reporting daughter has arrived and would like to speak with Palliative Care. Pt resting in bed upon arrival. Met with Pt's daughter Esme who reports being secondary MPOA and spouse is Primary. She reports family is requesting for Pt's O2 be removed. Daughter Esme reports Pt has had conversations recently with family regarding wishes if ever in a condition such as now. She reports before this stroke, Pt was independent of his ADLs and enjoyed a good quality of life. She reports Pt would not want to pursue treatment if Pt did not have 100% chance of returning to his baseline. Daughter shows this RN and RN Caremanager Porsha of spouse requesting O2 be removed and no life prolonging measures. Family agreeable for this RN to have conversation with Pt regarding wishes. Pt is A&OX4. Pt reporting wanting to go home. Assessed Pt's understanding of inability to swallow and going home in current condition. Pt states "I will ". Pt confirms wishes to focus on comfort and states "I'm ready to go with [facility]". Family agreeable to wait for results of repeat CT before proceeding with comfort care. Spoke with Dr Blackwell and relayed Pt's wishes. Dr Blackwell will review results and discuss with family. Spoke with Primary SHEREE Villatoro and discussed case. Palliative Care will remain available
--- NOTE | 2022-10-05 18:05 | NUR ---
SHIFT SUMMARY PATIENTS NEUROLOGICAL STATUS HAS REMAINED THE SAME THROUGHOUT THE SHIFT. PT HAS BEEN HYPERTENSIVE, TREATED WITH IV LOPRESSOR PER MAR. THERE HAS BEEN VARIOUS CONVERSATIONS WITH NURSING STAFF, PALLATIVE CARE, AND THE PROVIDER REGARDING PLAN OF CARE AND NOT PROVIDING LIFE-PROLONGING MEASURES, PER PTS REQUEST. PT REFUSED IV FLUIDS, BUT ACCEPTED ANTIHYPERTENSIVE MEDICATIONS. PT DENIES CP, SOB, N/V. PLAN IS TO RE-EVAL IN AM OVER PLAN OF CARE WITH PALLIATIVE CARE.
--- NOTE | 2022-10-05 18:44 | NUR ---
I have reviewed the certified nursing attendant documentation and am in agreement.
--- NOTE | 2022-10-05 21:33 | NUR ---
UPDATE PT REMAINS NPO AFTER FAILING SWALLOW EVAL TODAY. FLUIDS ORDERD PER EMAR, BUT PT STATED HE DOES NOT WANT THEM. PT IS A/Ox4 AND ABLE TO MAKE HIS NEEDS KNOWN. EDUCATION PROVIDED ABOUT NEED FOR FLUIDS DUE TO NPO STATUS, BUT PT REAFFIRMED HIS CHOICE WITH FAM PRESENT IN ROOM.
--- NOTE | 2022-10-06 05:06 | NUR ---
SHIFT SUMMARY A/Ox4 AND MOSTLY COOPERATIVE WITH CARE PROVIDED BY MEMBERS OF STAFF. SPEECH CONTINUES TO BE SLURRED DUE TO L FACIAL DROOP, BUT PT IS ABLE TO VERBALLY COMMUNICATE HIS NEEDS. L ARM AND L LEG CONTINUE TO BE VERY WEAK WITH PT BARLY ABLE TO MOVE BOTH EXTREMITIES. PT ALSO REPORTS LACK OF SENSATION REPORT IN LEFT ARM SINCE HIS STROKE. PUPILS ALSO UNEQUAL, BUT CONTINUE TO BE REACTIVE TO LIGHT. RESPIRATORY PINEDO, MAINTAIN SPO2 >95% ON 1L VIA NC WITH NO REPORTS OF SOB OR DYSPNEA REPORTED. CARDIAC PINEDO, PT REMAINS IN AFIB 70-90'S PER TELEMETRY WITH NO REPROTS OF CP OR PRESSURE REPORTED. BP CONTINUES TO BE HOLDING 160'S SYSTOLIC, BUT RESPONDS WELL TO IV LOPRESSOR. PT IS INCONTINENT OF URINE, ATTENDS IN PLACE AND CHANGED PRN. UNDERWENT SWALLOW EVAL ON 10/05/22, BUT ULTIMATLY FAILED PER REPORT. PT HAS REMAINED NPO, ORAL CARE CONDUCTED ORDERED WELL PT REFUSES ORDERED FLUIDS. Q2HR TURN ORDERED. NO NEW ORDERS AT THIS TIME, WILL REPORT TO ASSUMPTION OF CAR RN.
--- NOTE | 2022-10-06 08:45 | NUR ---
AM NOTE: PATIENT WAKES TO TOUCH AND VOICE. RESPONDING SLOWLY. ALERT TO SELF, FAMILY, PLACE AND SITUATION. LEFT SIDE DOWN WITH VERY MINIMAL MOVEMENT. FOLLOWING SIMPLE COMMANDS WITH RIGHT SIDE. LEFT FACIAL DROOP. PUPILS UNEQUAL WITH LEFT SLIGHTLY LARGER. ON 1-2L NASAL CANNULA SATING MID-HIGH 90'S. LUNGS SOUNDING CLEAR AND DIM. SHALLOW BREATHING. RESPIRATIONS EVEN AND UNLABORDED. TELE SHOWING AFIB WITH HR 80-90'S. BP ELEVATED. DENIES CHEST PAIN/PRESSURE. NPO AT THIS TIME, FAILED SPEECH EVAL. ATTENDS IN PLACE. Q2 TURNING. INCONTINENT OF URINE. FAMILY AT BEDSIDE. PATIENT ABLE TO MAKE NEEDS KNOWN. PLAN FOR CT SCAN THIS MORNING.
[2022-10-06 08:46] LABS: Albumin, Blood 3.1 g/dL (3.4-5.0); Anion Gap 5 mmol/L (6-16); Blood Urea Nitrogen 30 mg/dL (8-24); Bun/Creatinine Ratio 36.5 (12.0-20.0); CO2, Blood 26 mmol/L (21-32); Calcium, Blood 8.4 mg/dL (8.5-10.1); Chloride, Blood 109 mmol/L (98-108); Creatinine, Blood 0.82 mg/dL (0.60-1.20); Glomerular Filtration Rate 84 (60-); Glucose, Blood 124 mg/dL (70-99); Phosphorus, Blood 2.3 mg/dL (2.5-4.9); Sodium, Blood 140 mmol/L (136-145)
--- NOTE | 2022-10-06 11:06 | NUR ---
FAMILY MEETING WITH PALLIATIVE CARE AND CASE MANAGEMENT TO DISCUSS FUTURE OPTIONS OF HOSPICE AND COMFORT CARE. DR. OLSON IN TO SEE PATIENT AND PATIENT ABLE TO VERBALIZE THE WANT FOR COMFORT CARE. PATIENT STATES "I DON'T WANT ASSISTANCE" AND TO "TAKE THE OXYGEN OFF". PATIENT STATES HE WOULD LIKE ICE COLD APPLE JUICE. DR. OLSON DISCUSSED COMFORT CARE WITH PATIENT AND FAMILY. ALL IN AGGREANCE FOR COMFORT CARE MEASURES. DR. OLSON TO PLACE COMFORT CARE ORDERS. THIS RN TO CALL IMAGING AND CANCEL CT OF HEAD. FAMILY REMAINS AT BEDSIDE.
--- NOTE | 2022-10-06 12:56 | NUR ---
Care Conference with pt's son and daughter this am regarding end of life care, comfort care, hospice vs treatment. Family has been trying to come up with a plan, and haven't been sure if they will be able to take him home with hospice due to lack of available caregivers and/or training. However, the pt has since been placed on comfort care, and family have gone to eat lunch and discuss planning. Pt has states he would like to go home, and hopeful family will respect his wishes. He denies neck pain or SOB. in place prn.
--- NOTE | 2022-10-06 13:40 | NUR ---
Spiritual care visit conducted. Patient is lying in bed and aware of conversation even though his eyes are closed. 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 Esme tells me that many family members and friends who will be trading off as they want to come in to see the patient a couple at a time. I ask pt what is most important to him and he states, "that my family would be ok given how things sit with me." He also voices concerns about a grandson named Soraida. I pray with patient about his needs and patient responds well and shows signs of catharsis and inner peace. I will continue to remain available to patient and family.
--- NOTE | 2022-10-06 17:00 | NUR ---
TRANSFER 302 PT REPORT RECEIVED. PT ARRIVED VIA BED ACCOMPANIED BY RN. PT LANDY AND ALERT. DAUGHTER-CATRACHITA IN ATTENDANCE. PT IMMEDIATELY ASKED FOR APPLE JUICE. FAMILY ORIENTED TO NEW ROOM. COMFORT CART ARRIVED AND PLACED IN ROOM. CONTINUE POC.
--- NOTE | 2022-10-07 04:50 | NUR ---
SUMMARY: PATIENT ON COMFORT CARE. MEDICATED FOR PAIN ONCE BEFORE LUNA INSERTION. PATIENT IS AOX3. ABLE TO ANSWER QUESTIONS WHEN ASKED. REPORTS HE IS COMFORTABLE, NO PAIN. ORAL CARE PROVIDED. REPOSITIONED IN BED THROUGHOUT NIGHT. CALL LIGHT IN REACH. APPLE JUICE PROVIDED WHEN PATIENT REQUESTED.
--- NOTE | 2022-10-07 09:37 | NUR ---
NOTE AUDIBLE HICCUPS NOTED. OBSERVED PT REACHING FOR HIS HEAD AND SCOWLING WHEN HE HICCUPS. MEDCIATED WITH ROXANOL 10MG X1. FOLLOWED BY A SIP[ OF APPLE JUICE. HOB 30 DEGREES. SCANT OUT LUNA. REPOSITIONED. CONTINUE POC.
--- NOTE | 2022-10-07 15:44 | NUR ---
NOTE PT TALKING ABOUT ELEPHANTS NEEDING BLANKETS AND PICKING COTTON. FAMILY REALTED JM HE HAS STARTED HICCUPING. MEDICATED WITH ATIVAN 1MG X1 AND ROXANOL 10MG SL. ORAL CARE DONE. HE LIKES APPLE JUICE SPONGE POPS. REPOSITIONED AND LUNA DRAINED. CONTINUE POC.
--- NOTE | 2022-10-08 04:44 | NUR ---
Summary: Patient on comfort care. Resting comfortably in bed. He was moving his arms at start of shift like he was hallucinating so medicated for that. He slept peacefully after. Repositioned in bed throughout shift. Alatorre in place.
--- NOTE | 2022-10-08 10:16 | NUR ---
Spiritual care visit conducted. Patient is lying in bed and resting. He responds with one word answers, saying "no" to having any pain and "yes" to having a prayer said for him. Patient squeezes my hand and says, "thank you," at the conclusion of the prayer. His dtr Esme arrives shortly after and we talk about the d/c home on hospice and the details being worked out. Family are making sacrifices on many levels to pull everything together to make it happen. Patient's spouse is the driving force as she decided that she wants him home. I provide therapeutic listening and anticipitory grief support. Esme responded well and showed signs of being comforted.
--- NOTE | 2022-10-08 10:35 | NUR ---
Comfort Care Visit Pt resting in bed with his eyes closed. Pt appears comfortable with no S/S of distress at this time. Pt left undisturbed at this time. Spoke with Pt's daughter Esme out in [place]. Discussed D/C plan with hospice services today. Family in agreement but reports some hesitancy. Spoke with Primary RN Damari and discussed case. No concerns reported at this time. Palliative Care will remain available
[2022-10-08] MEDS ORDERED: MORP20L SL (11:56)
[2022-10-08] MEDS ORDERED: TRANSDERM-SCOP1 EA13 TD (11:56)
--- NOTE | 2022-10-08 15:44 | NUR ---
NOTES/DISCHARGE SUMMARY: PATIENT ON COMFORT CARE MEASURES. NONVERBAL. PATIENT RESPOND TO VERBAL AND PAINFUL STIMULI. RR IS EVEN AND UNLABORED. PATIENT RECEIVED COMFORT CARE MEDS PER EMAR. REPOSITIONED, ORAL CARE, CATH CARE AND ATTENDS CHANGED. PATIENT RECEIVED BEDBATH AND LINEN CHANGED TODAY. FAMILY AT BEDSIDE T/O THE DAY. IV TO L AC WAS DC'D. PATIENT DISCHARGE HOME c HOSP[facility] C[facility]ROUGH [facility]. DISCHARGE INSTRUCTION PACKET GIVEN TO DAUGHTER. EDUCATE PATIENT DISCHARGING c LUNA CATHETER, EDUCATE DAUGHTER REGARDING LUNA CATH CARE, MEDICATIONS AND END OF LIFE CARE. DAUGHTER STATED UNDERSTANDING AND NO FURTHER QUESTIONS. ALL PATIENT PERSONAL BELONGINGS WERE SENT HOME c THE DAUGHTER. PATIENT LEFT THE ROOM AT AROUND [id number]. PATIENT WAS TRANSPORTED VIA GURNEY BY [facility].
== END 2022-10-08 15:40 | disposition hospice, home (50) | DRG 64 ==
LOC: ER 09:45 → PCU 11:49 → MEDS 10-06 16:53
PROVIDERS: Emergency Medicine; ADMIT Internal Medicine
DX: I63.511 Cerebral infarction due to unspecified occlusion or stenosis of right middle cerebral artery (principal); G93.6 Cerebral edema; G81.94 Hemiplegia, unspecified affecting left nondominant side; I48.92 Unspecified atrial flutter; I48.20 Chronic atrial fibrillation, unspecified; N13.8 Other obstructive and reflux uropathy; Z51.5 Encounter for palliative care; Z66 Do not resuscitate; I10 Essential (primary) hypertension; I25.10 Atherosclerotic heart disease of native coronary artery without angina pectoris; N40.1 Benign prostatic hyperplasia with lower urinary tract symptoms; R47.81 Slurred speech; I49.3 Ventricular premature depolarization; E83.39 Other disorders of phosphorus metabolism; G60.0 Hereditary motor and sensory neuropathy; I87.2 Venous insufficiency (chronic) (peripheral); Z96.651 Presence of right artificial knee joint; I25.2 Old myocardial infarction; Z95.5 Presence of coronary angioplasty implant and graft; Z87.19 Personal history of other diseases of the digestive system; Z98.890 Other specified postprocedural states; Z79.899 Other long term (current) drug therapy; Z79.82 Long term (current) use of aspirin; Z79.02 Long term (current) use of antithrombotics/antiplatelets
CPT/HCPCS: 36415; 70450; 70496; 70498; 71045; 80048; 80053; 80061; 80069; 83036; 83735; 84100; 85025; 85027; 85610; 85730; 92526; 92610; 93005; 93010; 93306; 99285-25; A9270; J2060; J7050; Q9967